=== PATIENT | female | born 1980 | race Caucasian/White ===

== ENCOUNTER 2020-05-11 16:30 | Emergency (ER) | payer SELFPAY ==
[2020-05-11 18:56] VITALS: BP 120/82; PULSE 75; RESP 18; TEMP 37; O2SAT 100; BMI 27.1
--- NOTE | 2020-05-11 19:50 | ED.GENADULT ---
HPI - General Adult General Chief complaint: General Medical Stated complaint: chest pressure Time Seen by Provider: 05/11/20 19:50 Source: patient Mode of arrival: ambulatory History of Present Illness HPI narrative: Pleasant 40-year-old female with history of asthma and fibromyalgia presents today with complaint of pressure-like discomfort in the chest for the past 3 days with mild cough and feels like she is slightly wheezing. States similar symptom in the past when she had pneumonia. There is no fever, sick contacts or travel. Onset (ago): day(s) (3 days ) Radiation: non-radiation Severity: mild Severity scale (1-10): 4 Quality: aching Relieving factors: none Exacerbating factors: none Treatments prior to arrival: none Related Data Allergies Allergy/AdvReac Type Severity Reaction Status Date / Time No Known Allergies Allergy Verified 05/11/20 19:51 Review of Systems Review of Systems: Constitutional: No Weight loss, No Fever, No Chills, No Night Sweats, No Fatigue, No Malaise ENT/Mouth: No Hearing loss, No Ear Pain, No Nasal Congestion, No Sinus Pain, No Hoarseness, No sore throat, No Rhinorrhea, No Swallowing Difficulty Eyes: No Eye Pain, No Swelling, No Redness, No Foreign Body, No Discharge, No Vision Changes Cardiovascular: + Chest Pain, No SOB, No Dyspnea on Exertion, No Orthopnea, No Edema, No Palpitations Respiratory: + Cough, No Sputum, No Wheezing, No Smoke Exposure, No Dyspnea Gastrointestinal: No Nausea, No Vomiting, No Diarrhea, No Constipation, No abdominal Pain, No Hematochezia, No Melena Genitourinary: no irregular bleeding, No Dysuria, No Urinary Frequency, No Hematuria, No Urinary Incontinence, No Urgency, No Flank Pain, No Urinary Flow Changes Musculoskeletal: No joint pain, No Myalgias, No Joint Swelling Skin: No Skin Lesions, No rash Neuro: No Weakness, No Numbness, No Paresthesias, No Loss of Consciousness, No Dizziness, No Headache Psych: No Anxiety/Panic, No Social Issues Heme/Lymph: No Bruising, No Bleeding,No Lymphadenopathy Endocrine: No Polyuria, No Polydipsia, No Temperature Intolerance Yes all other systems are reviewed and are negative [facility] Past Medical History Medical History Asthma Fibromyalgia Social History Social History Alcohol intake: never Smoking Status: Never smoker Use of substances other than those prescribed or required for medical reasons: No Advance Directives: No Advance Directives Information Provided: No Physical Exam Vital Signs: Vital Signs: Last Vital Signs Temp 98.6 F 05/11/20 18:56 Pulse 75 05/11/20 18:56 Resp 18 05/11/20 18:56 BP 120/82 05/11/20 18:56 Pulse Ox 100 05/11/20 18:56 Body Mass Index 27.1 Reviewed Const: General: cooperative and healthy appearing; No acute distress or intoxicated appearing Nutritional Appearance: average body habitus Orientation/consciousness: patient oriented x3 HENMT: Head: Yes normal to inspection Ears: hearing grossly normal bilaterally Eyes: General: appearance normal, both eyes and all related structures Visual Morley: normal visual morley by confrontation Neck: Neck: Yes normal visual inspection and No tender Thyroid: Thyroid normal Chest: Chest palpation & inspection: normal inspection of the chest Breast/axilla inspection: normal inspection of the breasts Resp: Effort & Inspection: normal respiratory effort Auscultation: clear to auscultation bilaterally Cardio: Jugular venous distension: no JVD Rhythm: regular rhythm Heart sounds: S1 normal heart sound present and S2 normal heart sound present GI: Inspection: Yes normal to inspection Percussion: Yes normal to percussion Auscultation: normal bowel sounds : General: Yes no CVA tenderness Back/Spine/Pelvis: Back: no CVA tenderness Skin: General skin exam: no rashes or lesions noted Neuro: General: patient oriented x3 Extrem: General: Yes normal to inspection Medical Decision Making Lab Data Result diagrams: 05/11/20 19:55 05/11/20 19:55 Labs: Lab Results 05/11/20 05/11/20 05/11/20 Range/Units 19:55 19:55 19:55 WBC 5.4 (4.8-10.8) X10*3/uL RBC 4.30 (4.20-5.50) X10*6/uL Hgb 12.9 (12.0-16.0) g/dl Hct 38.5 (37-47) % MCV 89.5 (80-98) fL MCH 30.0 (27.0-33.0) pg MCHC 33.5 (31.0-35.0) g/dl RDW 12.3 (11.0-16.0) % Plt Count 185 (160-400) X10*3/uL MPV 11.9 (9.4-12.3) fL Immature Gran % (Auto) 0.0 (0.0-0.4) % Neut % (Auto) 54.4 (45-73) % Lymph % (Auto) 36.2 (20-40) % [place] % (Auto) 7.6 (2-11) % Eos % (Auto) 1.1 (0-4) % Baso % (Auto) 0.7 (0-2) % Lymph # (Auto) 2.0 (1.2-4.9) X10*3/uL [place] # (Auto) 0.4 (0.1-1.2) X10*3/uL Eos # (Auto) 0.1 (0.0-0.4) X10*3/uL Baso # (Auto) 0.0 (0.0-0.2) X10*3/uL Abs Immat Gran (auto) 0.00 (0.00-0.03) X10*3/uL Absolute Neuts (auto) 3.0 (2.0-8.3) X10*3/uL Absolute Nucleated RBC 0.000 (0.0-0.012) X10*3/uL Nucleated RBC % (auto) 0.0 (0.0-0.2) /100WBC PT 11.5 (10.8-13.0) SEC INR 1.0 (0.9-1.1) APTT 46.2 H (24.1-38.0) SEC Sodium 138 (135-145) mmol/L Potassium 3.8 (3.3-5.1) mmol/l Chloride 105 (96-108) mmol/L Carbon Dioxide 25 (22-29) mmol/L Anion Gap 12 (12-20) BUN 11 (9-16) mg/dL Creatinine 0.74 (0.5-1.4) mg/dL Estim Creat Clear Calc 88.9 Estimated GFR > 60 Random Glucose 109 (60-115) mg/dL Calcium 8.7 (8.4-10.2) mg/dL Total Bilirubin 0.5 (0.0-1.0) mg/dL AST 32 H (5-31) U/L ALT 41 H (0-31) U/L Alkaline Phosphatase 59 (39-117) U/L Troponin I High Sens (<3.5-17.0) ng/L Total Protein 6.9 (6.5-8.0) g/dL Albumin 4.3 (3.5-5.0) g/dL 05/11/20 Range/Units 19:55 WBC (4.8-10.8) X10*3/uL RBC (4.20-5.50) X10*6/uL Hgb (12.0-16.0) g/dl Hct (37-47) % MCV (80-98) fL MCH (27.0-33.0) pg MCHC (31.0-35.0) g/dl RDW (11.0-16.0) % Plt Count (160-400) X10*3/uL MPV (9.4-12.3) fL Immature Gran % (Auto) (0.0-0.4) % Neut % (Auto) (45-73) % Lymph % (Auto) (20-40) % [place] % (Auto) (2-11) % Eos % (Auto) (0-4) % Baso % (Auto) (0-2) % Lymph # (Auto) (1.2-4.9) X10*3/uL [place] # (Auto) (0.1-1.2) X10*3/uL Eos # (Auto) (0.0-0.4) X10*3/uL Baso # (Auto) (0.0-0.2) X10*3/uL Abs Immat Gran (auto) (0.00-0.03) X10*3/uL Absolute Neuts (auto) (2.0-8.3) X10*3/uL Absolute Nucleated RBC (0.0-0.012) X10*3/uL Nucleated RBC % (auto) (0.0-0.2) /100WBC PT (10.8-13.0) SEC INR (0.9-1.1) APTT (24.1-38.0) SEC Sodium (135-145) mmol/L Potassium (3.3-5.1) mmol/l Chloride (96-108) mmol/L Carbon Dioxide (22-29) mmol/L Anion Gap (12-20) BUN (9-16) mg/dL Creatinine (0.5-1.4) mg/dL Estim Creat Clear Calc Estimated GFR Random Glucose (60-115) mg/dL Calcium (8.4-10.2) mg/dL Total Bilirubin (0.0-1.0) mg/dL AST (5-31) U/L ALT (0-31) U/L Alkaline Phosphatase (39-117) U/L Troponin I High Sens < 3.5 (<3.5-17.0) ng/L Total Protein (6.5-8.0) g/dL Albumin (3.5-5.0) g/dL Imaging Data Chest x-ray: Radiologist's impression: [address] [address] XRay Report Signed Patient: Laura TrippMR#: [id number] : 1980Acct:[id number] Age/Sex: 40 / FADM Date: 05/11/20 Loc: HO.ED Attending Dr: Ordering Physician: Alexsander Segura NP Date of Service: 05/11/20 Procedure(s): XR chest 1V Accession Number(s): [id number] cc: Alexsander Segura NP~ EXAMINATION: XR CHEST CLINICAL INFORMATION: Chest pain COMPARISON: None TECHNIQUE: Frontal portable view of the chest was obtained. 8:03 PM FINDINGS: No significant abnormality is noted involving the heart, lungs, mediastinum, bony thorax or soft tissues. XR/XR chest 1V IMPRESSION: Unremarkable examination. Dictated By:LAUREL CAI MD Signed By:<Electronically signed by LAUREL CAI MD in OV>05/11/202029 DD/ 50 TD/TT: Fructose Loader: ROSALIA ECG Data Interpretation: Normal sinus rhythm HR 78 ME interval within normal limits No acute ST segment changes No previous Scores Heart Score History: -0- slightly suspicious ECG: -0- normal Age: -0- < or = 45 Risk factory: -0- no risk factors known Troponin: -0- < or = normal limit Score: 0 Risk: 1.7% Additional Scores Perc: Score: Perc negative Discharge Plan Discharge Clinical Impression: Atypical chest pain Patient Disposition: Home, Self-Care Instructions: Chest Pain (ED) Additional Instructions: Your blood work along with your chest x-ray and her EKG were within normal limits Home care as instructed Rest, Drink plenty fluids Take medication prescribed Return if any concerns or worsening symptoms Thank you Referrals: Masha Bain MD [Primary Care Provider] - 1 week (Phone visit)
--- NOTE | 2020-05-11 19:51 | ECG_ITS ---
Test Reason : SOB Blood Pressure : / mmHG Vent. Rate : 078 BPM Atrial Rate : 078 BPM P-R Int : 164 ms QRS Dur : 074 ms QT Int : 380 ms P-R-T Axes : 067 028 036 degrees QTc Int : 433 ms Normal sinus rhythm Normal ECG No previous ECGs available Referred By: Alexsander Segura Electronically Signed By:STACEY VERMA MD
[2020-05-11 20:07] LABS: Basophils Percent Auto 0.7 % (0-2); Eosinophils Absolute Auto 0.1 X10*3/uL (0.0-0.4); Eosinophils Percent Auto 1.1 % (0-4); Hematocrit 38.5 % (37-47); Hemoglobin 12.9 g/dl (12.0-16.0); Lymphocytes Percent Auto 36.2 % (20-40); MANUAL DIFF FLAG NO; Mean Corpuscular HGB Conc 33.5 g/dl (31.0-35.0); Mean Corpuscular Volume 89.5 fL (80-98); Mean Platelet Volume 11.9 fL (9.4-12.3); Monocytes Absolute Auto 0.4 X10*3/uL (0.1-1.2); Monocytes Percent Auto 7.6 % (2-11); Neutrophils Percent Auto 54.4 % (45-73); Platelet Count 185 X10*3/uL (160-400); Red Cell Distribution Width 12.3 % (11.0-16.0); White Blood Count 5.4 X10*3/uL (4.8-10.8)
[2020-05-11 20:12] LABS: Prothrombin Time 11.5 SEC (10.8-13.0)
[2020-05-11 20:15] LABS: Partial Thromboplastin Time 46.2 SEC (24.1-38.0)
[2020-05-11 20:34] LABS: Alanine Aminotransferase 41 U/L (0-31); Albumin Level 4.3 g/dL (3.5-5.0); Alkaline Phosphatase 59 U/L (39-117); Anion Gap 12 (12-20); Aspartate Amino Transferase 32 U/L (5-31); Bilirubin Total 0.5 mg/dL (0.0-1.0); Blood Urea Nitrogen 11 mg/dL (9-16); Calcium 8.7 mg/dL (8.4-10.2); Carbon Dioxide 25 mmol/L (22-29); Chloride 105 mmol/L (96-108); Creatinine Clr Calc Pharmacy 88.9; Estimated Glomerular Filt Rate > 60; Glucose Random 109 mg/dL (60-115); Potassium 3.8 mmol/l (3.3-5.1); Sodium 138 mmol/L (135-145); Total Protein 6.9 g/dL (6.5-8.0)
[2020-05-11 20:37] LABS: Troponin-I High Sensitivity < 3.5 ng/L (<3.5-17.0)
[2020-05-11 20:55] LABS: Influenza A PCR NEGATIVE (Negative); Influenza B PCR NEGATIVE (Negative); Resp Syncy Virus RNA Qual PCR NEGATIVE (Negative); SARS COV2 PCR INHOUSE NEGATIVE (Negative)
--- NOTE | 2020-05-11 21:57 | PC.NURSE ---
COVID TEST NEGATIVE. VOICE MAIL LEFT FOR PATIENT TO CALL EMERGENCY DEPT. #[phone].
== END 2020-05-11 21:14 | disposition home or self-care (01) ==
PROVIDERS: Nurse Practitioner Primary Care; Emergency Provider Emergency Medicine; PCP Internal Medicine
DX: R07.89 Other chest pain (principal); Z20.828 Contact with and (suspected) exposure to other viral communicable diseases; J45.909 Unspecified asthma, uncomplicated
CPT/HCPCS: 0241U; 36415; 71045; 80053; 84484; 85025; 85610; 85730; 93005; 99284

== ENCOUNTER 2020-06-13 19:04 | Emergency (ER) | payer MEDICAID, SELFPAY ==
[2020-06-13 19:39] VITALS: BP 123/90; PULSE 97; RESP 16; TEMP 36.7; O2SAT 100; BMI 27.3
[2020-06-13 20:23] LABS: COVID-19 Test Negative (Negative); IDNOW Serial# 9DD0AD1C
[2020-06-13 20:55] VITALS: BP 121/80; PULSE 79; RESP 16; TEMP 36.9; O2SAT 100
--- NOTE | 2020-06-13 20:55 | ED.SOB ---
HPI - SOB/Dyspnea General Chief Complaint: Dyspnea Stated Complaint: Covid symptoms Source: patient Mode of arrival: ambulatory Limitations: no limitations History of Present Illness HPI Narrative: 40-year-old female with no significant past medical history presents with chest pressure and upper respiratory symptoms. States that she had a fever several days ago and has concerns regarding COVID-19. She also complains of musculoskeletal pain to the right shoulder and scapula. She does have a history of asthma, states that she has been using her inhaler on a regular basis. She does not report palpitations, dizziness, weakness, abdominal pain, abdominal distention, dysuria, hematuria, and edema. MD elicited complaint: shortness of breath Pertinent past history: asthma Onset (ago): week(s) (1) Timing: intermittent Severity: mild Exacerbating factors: movement Known history of: asthma Associated symptoms: fever and chest congestion Treatment prior to arrival: none Related Data Previous Rx's Medication Instructions Recorded cyclobenzaprine 10 mg PO TID PRN #14 tab 06/13/20 Allergies Allergy/AdvReac Type Severity Reaction Status Date / Time No Known Allergies Allergy Unverified 02/01/20 17:39 seasonal allergies Allergy Unknown Uncoded 04/05/18 00:00 Review of Systems Review of Systems: Constitutional: positive Fever, positive Chills, positive fatigue, positive Malaise ENT/Mouth: No sore throat, no runny nose Eyes: No Discharge Cardiovascular: No Chest Pain, No SOB Respiratory: No Cough, No Sputum, No Wheezing, No Smoke Exposure, No Dyspnea Gastrointestinal: No Nausea, No Vomiting, No Diarrhea Genitourinary: no irregular bleeding, No Dysuria, No Urinary Frequency, No Hematuria, No Urinary Incontinence, No Urgency, No Flank Pain, Musculoskeletal: positive Myalgia, positive right shoulder and scapula pain Skin: No rash Neuro: No Headache Yes all other systems are reviewed and are negative [facility] Past Medical History Attestation statement: The following information was validated with the patient. Source: old records reviewed Social History Social History Smoking Status: Never smoker Use of substances other than those prescribed or required for medical reasons: No Advance Directives: No Advance Directives Information Provided: No Physical Exam Vital Signs: Vital Signs: Last Vital Signs Temp 98.1 F 01/28/21 22:00 Pulse 74 06/13/20 22:00 Resp 91 H 06/13/20 22:00 BP 110/67 06/13/20 22:00 Pulse Ox 99 06/13/20 22:00 Body Mass Index 27.3 Appearance: Alert. Oriented X3. No acute distress. Eyes: Pupils equal, round and reactive to light. ENT: Pharynx normal. Cranials 2 through 12 intact to Neck: Normal inspection. Neck supple. CVS: Normal heart rate and rhythm. Pulses normal. Respiratory: No respiratory distress. Lung sounds clear to auscultation all lobes Abdomen: Soft and nontender. Negative Haynes, McBurney, psoas. Skin: Skin warm and dry. Normal skin color. Normal skin turgor. Extremities: No lower extremity edema. Neuro: No motor deficit. No sensory deficit. 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 Plan of care is for COVID testing and chest x-ray. She is complaining of shoulder and scapular pain however her physical abdominal exam is negative for tenderness. Most likely to be repetitive motion and constant lifting, which she agrees with this. COVID is negative, chest x-ray is unremarkable. Plan of care is to discharge home with muscle relaxer. Patient verbalized understanding of and agrees to plan of care to discharge home. motor vehicle parts interpreter utilized for all correspondence. Google translate utilized for discharge instructions. MDM - SOB/Dyspnea MDM Narrative Medical decision making narrative: COVID-19, musculoskeletal pain Differential Diagnosis Differential diagnosis: Likely pneumonia and asthma with exacerbation Medical Records Attestation: I reviewed the patient's medical records. Lab Data Attestation: I reviewed the patient's lab results. Labs: Lab Results 06/13/20 Range/Units 19:58 COVID-19 (KATLIN) Negative (Negative) COVID-19 Clin Com See Note Imaging Data Chest x-ray: Attestation: I personally reviewed and interpreted this imaging study as follows: Radiologist's impression: EXAMINATION: XR CHEST CLINICAL INFORMATION: Shortness of breath COMPARISON: 11/07/2017 TECHNIQUE: 2 views of the chest were obtained. FINDINGS: No significant abnormality is noted involving the heart, lungs, mediastinum, bony thorax or soft tissues. XR/XR chest 2V IMPRESSION: Unremarkable examination. Discharge Plan Discharge Clinical Impression: Muscular aches URI (upper respiratory infection) Qualifiers: URI type: unspecified viral URI Qualified Code(s): J06.9 - Acute upper respiratory infection, unspecified Patient Disposition: Home, Self-Care Instructions: Muscle Strain (ED), Upper Respiratory Infection (ED), Viral Syndrome (ED) Additional Instructions: Se le evaluaron los s?ntomas de las v?as respiratorias superiores de acuerdo con COVID-19. Mcpherson prueba COVID fue negativa. La radiograf?a de t?rax fue negativa para los hallazgos agudos que requieren olivia intervenci?n emergente. [place] podr?a ser olivia progresi?n temprana de la infecci?n viral de las v?as respiratorias superiores. Para el dolor esquel?musa muscular le recet? con olivia receta para ciclobenzaprino. Jody medicamento es un relajante muscular y puede retrasar el tiempo de reacci?n, causar somnolencia, y aumentar el riesgo de ca?morales. No conduzca ni opere maquinaria mientras est? tomando jody medicamento Vidal por elegir jody departamento de emergencias para la evaluaci?n. Por favor, jim un seguimiento con el m?dico de atenci?n primaria seg?n sea necesario. Regrese al servicio de urgencias para cualquier s?ntoma nuevo, preocupante o que empeore. You were evaluated for upper respiratory symptoms consistent with COVID-19. Your COVID test was negative. Your chest x-ray was negative for acute findings requiring emergent intervention. This could be an early progression of upper respiratory viral infection. For muscular skeletal pain prescribed you with a prescription for cyclobenzaprine. This medication is a muscle relaxer and it may delay reaction time, cause drowsiness, and increase risk for falls. Do not drive or operate machinery while taking this medication Thank you for choosing this emergency department for evaluation. Please follow-up with primary care physician as needed. Return to the emergency department for any new, concerning, or worsening symptoms. Prescriptions: New cyclobenzaprine 10 mg tablet 10 mg PO TID PRN (Reason: muscle spasm) Qty: 14 RF: 0 Stand Alone Forms: Work/School Release Discharge Date/Time: 06/13/20 22:12
[2020-06-13 22:00] VITALS: BP 110/67; PULSE 74; RESP 91; TEMP 36.7; O2SAT 99
== END 2020-06-13 22:12 | disposition home or self-care (01) ==
PROVIDERS: Emergency Provider Emergency Medicine
DX: J06.9 Acute upper respiratory infection, unspecified (principal); Z20.822 Contact with and (suspected) exposure to COVID-19; M79.10 Myalgia, unspecified site
CPT/HCPCS: 36415; 71046; 87635; 99283; 99284

== ENCOUNTER → 2020-10-29 08:03 | Outpatient (BNVA) | payer SELFPAY | PROVIDERS: Visit Provider Physician Assistant Medical | DX: Z02.1 Encounter for pre-employment examination (principal) ==

== ENCOUNTER 2020-12-27 11:10 | Emergency (ER) | payer OTHER, SELFPAY ==
--- NOTE | 2020-12-27 | ECG_ITS ---
Test Reason : CHEST PAIN Blood Pressure : / mmHG Vent. Rate : 100 BPM Atrial Rate : 100 BPM P-R Int : 154 ms QRS Dur : 068 ms QT Int : 344 ms P-R-T Axes : 074 051 051 degrees QTc Int : 443 ms Normal sinus rhythm Normal ECG When compared with ECG of 07-NOV-2017 17:48, No significant change was found Referred By: Generic ED Physician Electronically Signed By:JONATAN MUNIZ
--- NOTE | ~2020-12-27 | XR_ITS ---
EXAMINATION: XR CHEST CLINICAL INFORMATION: Dizziness and chest pain. COMPARISON: Chest 11/07/2017 TECHNIQUE: 2 views of the chest were obtained. FINDINGS: No significant abnormality is noted involving the heart, lungs, mediastinum, bony thorax or soft tissues. XR/XR chest 2V IMPRESSION: Unremarkable chest examination.
[2020-12-27 11:19] VITALS: BP 121/80; PULSE 95; RESP 16; TEMP 36.6; O2SAT 100; BMI 25.9
[2020-12-27 11:29] VITALS: BP 131/71; PULSE 93; RESP 18; TEMP 37; O2SAT 100
--- NOTE | 2020-12-27 11:38 | ED_ITS ---
HPI - Dizziness General Chief Complaint: Dizziness Stated Complaint: dizzy Time Seen by Provider: 12/27/20 11:29 Source: patient and sign language interpreter Mode of arrival: ambulatory Limitations: language barrier History of Present Illness HPI Narrative: 40-year-old female with past medical history of costochondritis, fibromyalgia here with complaints of central chest discomfort x 3 days which is worsened with deep breathing and patient feels like she cant take a deep breath. No cough, fevers or chills or shortness of breath. History of costochondritis and feels similar. Started Flexeril and meloxicam 3 days ago and her pain is less severe today however patient is also having some palpitations and dizziness which is not a typical symptom of her costochondritis. She tells me that she feels palpitations when she has both at rest and with exertion. This has been going on for 3 days and dizziness is described as lightheadedness which is worsened with standing and movement. No headache, weakness, paresthesias. Related Data Previous Rx's Medication Instructions Recorded cyclobenzaprine 10 mg tablet 10 mg PO TID PRN #14 tab 06/13/20 Allergies Allergy/AdvReac Type Severity Reaction Status Date / Time No Known Allergies Allergy Unverified 02/01/20 17:39 seasonal allergies Allergy Unknown Uncoded 04/05/18 00:00 Review of Systems Review of Systems: Yes all other systems are reviewed and are negative Constitutional: Constitutional: Reports no additional constitutional compl aints, Denies body ache(s), Denies chills, Denies fever(s), Denies headache(s) and Denies weakness Eyes: Eyes: Reports no additional eye complaints and Denies change in vision ENT: Reports system reviewed and no additional complaints, except as documented, Reports dizziness, Denies headache(s), Denies nasal congestion, Denies nasal discharge and Denies neck pain Cardiovascular: Cardiovascular: Reports no additional cardiovascular complaints, Reports chest pain, Reports rapid heart rate, Denies leg edema and Denies dyspnea Respiratory: Respiratory: Reports no additional respiratory complaints, Denies cough and Denies dyspnea Gastrointestinal: Gastrointestinal: Reports no additional gastrointestinal complaints, Denies abdominal pain, Denies diarrhea, Denies nausea and Denies vomiting Genitourinary: Genitourinary: Reports no additional female genitourinary complaints and Denies urinary incontinence Musculoskeletal: Musculoskeletal: Reports no additional musculoskeletal complaints, Denies back pain, Denies arthralgias, Denies joint swelling, Denies neck pain, Denies numbness and Denies tingling Integumentary/Breasts: Skin/Breast: Reports system reviewed and no additional complaints, except as docu and Denies rash Neurologic: Reports system reviewed and no additional complaints, except as documented, Denies Abnormal speech present, Reports dizziness, Denies headache(s), Denies numbness, Denies tingling and Denies weakness PMFSH Past Medical History Attestation statement: The following information was validated with the patient. Source: old records reviewed and nursing notes reviewed Social History Social History Advance Directives: No Advance Directives Information Provided: No Patient : No Physical Exam Vital Signs: Vital Signs: Last Vital Signs Temp 98.2 F 12/27/20 12:09 Pulse 99 12/27/20 12:09 Resp 20 12/27/20 12:09 BP 120/81 12/27/20 12:09 Pulse Ox 100 12/27/20 12:09 Body Mass Index 25.9 Const: General: cooperative, healthy appearing, comfortable and no acute distress Orientation/consciousness: patient oriented x3 Limitations: no limitations HENMT: Head: Yes normal to inspection Ears: hearing grossly normal bilaterally General nose exam: Normal external nose present Face and sinus: Yes normal facial exam Mouth: Normal oral and palatal mucosa present Throat: Yes posterior oropharynx normal Eyes: General: appearance normal, both eyes and all related structures Pupils: Equal, round and reactive pupils present Neck: Neck: Yes normal visual inspection Chest: Chest palpation & inspection: normal inspection of the chest Resp: Effort & Inspection: normal respiratory effort Auscultation: clear to auscultation bilaterally Cardio: Rate: regular rate Rhythm: regular rhythm Peripheral pulses: Peripheral pulses 2+ throughout GI: Inspection: Yes normal to inspection Palpation (GI): Soft to palpation and nontender Auscultation: normal bowel sounds Back/Spine/Pelvis: Thoracic/Lumbar Spine: thoracic and lumbar spine normal to inspection Skin: General skin exam: no rashes or lesions noted Neuro: General: patient oriented x3, no focal motor deficits and normal sensation to monofilament Cranial nerves: Yes CN's II-XII intact bilaterally, Yes Equal, round and reactive pupils present, Yes Bilaterally intact EOM present, Yes Nystagmus not present, Yes Normal facial strength present and Yes Midline tongue present Cognition (Neuro): normal cognition Speech: No Abnormal speech present Gait exam (Neuro): Normal gait present Motor exam (neuro): 5/5 motor strength present throughout Sensory Exam: Normal double simultaneous stimulation for sensation Deep tendon reflexes (DTR's): Right patellar reflex intensity grade: 2+ and Left patellar reflex intensity grade: 2+ Coordination: [id number] test normal, [id number] test normal and tandem gait normal Extrem: General: Yes normal to inspection, Yes no pedal edema and Yes no calf tenderness Course Course Course Narrative: 40-year-old female here with complaints of chest discomfort wh ich is worsened with deep breathing and movement for the last few days which feels similar to her previous episodes of costochondritis. Using anti- inflammatory and Flexeril at home and feels that the pain is improved however, patient is also complaining of some dizziness with position changes and p alpitations which she feels like is a new symptom. Vital signs are stable. Neurological exam is normal. Will check labs, EKG, orthostatic vital signs, chest x-ray, UA.. 1545-orthostatics are positive with a 20 point increase in heart rate. Labs show no acute finding. EKG and troponin are unremarkable. Patient is feeling improved after fluid bolus. Likely costochondritis. May be underlying mild dehydration.. Reviewed worrisome signs and symptoms when to return to the emergency departmen t. Comfortable discharge home. MDM - Dizziness MDM Narrative Medical decision making narrative: Less likely ACS with symptoms greater than 3 days with negative troponin EKG Less likely PE with negative D-dimer Medical Records Attestation: I reviewed the patient's medical records. Lab Data Attestation: I reviewed the patient's lab results. Result diagrams: 12/27/20 11:46 12/27/20 11:46 Labs: Lab Results 12/27/20 12/27/20 12/27/20 Range/Units 11:46 11:46 11:46 WBC 5.4 (4.8-10.8) X10*3/uL RBC 4.28 (4.20-5.50) X10*6/uL Hgb 12.6 (12.0-16.0) g/dl Hct 38.7 (37-47) % MCV 90.4 (80-98) fL MCH 29.4 (27.0-33.0) pg MCHC 32.6 (31.0-35.0) g/dl RDW 13.1 (11.0-16.0) % Plt Count 208 (160-400) X10*3/uL MPV 11.3 (9.4-12.3) fL Immature Gran % (Auto) 0.2 (0.0-0.4) % Neut % (Auto) 66.8 (45-73) % Lymph % (Auto) 24.1 (20-40) % [place] % (Auto) 6.3 (2-11) % Eos % (Auto) 1.7 (0-4) % Baso % (Auto) 0.9 (0-2) % Lymph # (Auto) 1.3 (1.2-4.9) X10*3/uL [place] # (Auto) 0.3 (0.1-1.2) X10*3/uL Eos # (Auto) 0.1 (0.0-0.4) X10*3/uL Baso # (Auto) 0.1 (0.0-0.2) X10*3/uL Abs Immat Gran (auto) 0.01 (0.00-0.03) X10*3/uL Absolute Neuts (auto) 3.6 (2.0-8.3) X10*3/uL Absolute Nucleated RBC 0.000 (0.0-0.012) X10*3/uL Nucleated RBC % (auto) 0.0 (0.0-0.2) /100WBC PT 10.9 (9.9-13.0) SEC INR 1.0 (0.9-1.1) D-Dimer < 200 NG/ML Sodium 140 (135-145) mmol/L Potassium 4.1 (3.3-5.1) mmol/L Chloride 105 (96-108) mmol/L Carbon Dioxide 27 (22-29) mmol/L Anion Gap 12 (12-20) BUN 16 (9-16) mg/dL Creatinine 0.76 (0.5-1.4) mg/dL Estim Creat Clear Calc 84.9 Estimated GFR > 60 Random Glucose 101 (60-115) mg/dL Calcium 9.2 (8.4-10.2) mg/dL Magnesium 1.9 (1.6-2.6) mg/dL Total Bilirubin 0.7 (0.0-1.0) mg/dL Direct Bilirubin 0.3 (0.0-0.5) mg/dL AST 16 (5-31) U/L ALT 13 (0-31) U/L Alkaline Phosphatase 60 (39-117) U/L Troponin I High Sens (<3.5-17.0) ng/L Total Protein 6.9 (6.5-8.0) g/dL Albumin 4.1 (3.5-5.0) g/dL TSH 1.04 (0.32-4.0) uIU/mL Urine Color Urine Appearance Urine pH (5.0-8.0) Ur Specific Gary (1.005-1.025) Urine Protein (NEG-TRACE) MG/DL Urine Glucose (UA) (NEG) MG/DL Urine Ketones (NEG) MG/DL Urine Blood (NEG) Urine Nitrite (NEG) Ur Leukocyte Esterase (NEG) Urine RBC (0) /HPF Urine WBC (0-4) /HPF Ur Squamous Epith Cells /LPF Urine Bacteria /LPF Urine Test (NEGATIVE) 12/27/20 12/27/20 12/27/20 Range/Units 11:46 12:04 12:04 WBC (4.8-10.8) X10*3/uL RBC (4.20-5.50) X10*6/uL Hgb (12.0-16.0) g/dl Hct (37-47) % MCV (80-98) fL MCH (27.0-33.0) pg MCHC (31.0-35.0) g/dl RDW (11.0-16.0) % Plt Count (160-400) X10*3/uL MPV (9.4-12.3) fL Immature Gran % (Auto) (0.0-0.4) % Neut % (Auto) (45-73) % Lymph % (Auto) (20-40) % [place] % (Auto) (2-11) % Eos % (Auto) (0-4) % Baso % (Auto) (0-2) % Lymph # (Auto) (1.2-4.9) X10*3/uL [place] # (Auto) (0.1-1.2) X10*3/uL Eos # (Auto) (0.0-0.4) X10*3/uL Baso # (Auto) (0.0-0.2) X10*3/uL Abs Immat Gran (auto) (0.00-0.03) X10*3/uL Absolute Neuts (auto) (2.0-8.3) X10*3/uL Absolute Nucleated RBC (0.0-0.012) X10*3/uL Nucleated RBC % (auto) (0.0-0.2) /100WBC PT (9.9-13.0) SEC INR (0.9-1.1) D-Dimer NG/ML Sodium (135-145) mmol/L Potassium (3.3-5.1) mmol/L Chloride (96-108) mmol/L Carbon Dioxide (22-29) mmol/L Anion Gap (12-20) BUN (9-16) mg/dL Creatinine (0.5-1.4) mg/dL Estim Creat Clear Calc Estimated GFR Random Glucose (60-115) mg/dL Calcium (8.4-10.2) mg/dL Magnesium (1.6-2.6) mg/dL Total Bilirubin (0.0-1.0) mg/dL Direct Bilirubin (0.0-0.5) mg/dL AST (5-31) U/L ALT (0-31) U/L Alkaline Phosphatase (39-117) U/L Troponin I High Sens < 3.5 (<3.5-17.0) ng/L Total Protein (6.5-8.0) g/dL Albumin (3.5-5.0) g/dL TSH (0.32-4.0) uIU/mL Urine Color YELLOW Urine Appearance HAZY Urine pH 6.5 (5.0-8.0) Ur Specific Gary <= 1.005 (1.005-1.025) Urine Protein NEG (NEG-TRACE) MG/DL Urine Glucose (UA) NEG (NEG) MG/DL Urine Ketones NEG (NEG) MG/DL Urine Blood 3+ H (NEG) Urine Nitrite NEG (NEG) Ur Leukocyte Esterase NEG (NEG) Urine RBC 1-4 (0) /HPF Urine WBC 0 (0-4) /HPF Ur Squamous Epith Cells 1+ /LPF Urine Bacteria NONE /LPF Urine Test NEGATIVE (NEGATIVE) Imaging Data Chest x-ray: Attestation: I personally reviewed and interpreted this imaging study as follows: Radiologist's impression: [address] [address] XRay Report Signed Patient: Laura Montana MR#: [id number] : 1980 Acct:[id number] Age/Sex: 40 / F ADM Date: 12/27/20 Loc: [facility].ED Attending Dr: Ordering Physician: MAY BURROWS NP Date of Service: 12/27/20 Procedure(s): XR chest 2V Accession Number(s): [id number] cc: MAY BURROWS NP~ EXAMINATION: XR CHEST CLINICAL INFORMATION: Dizziness and chest pain. COMPARISON: Chest 11/07/2017 TECHNIQUE: 2 views of the chest were obtained. FINDINGS: No significant abnormality is noted involving the heart, lungs, mediastinum, bony thorax or soft tissues. XR/XR chest 2V IMPRESSION: Unremarkable chest examination. ECG Data Attestation: I personally reviewed and interpreted this ECG as follows: ECG interpretation date: 12/27/20 ECG interpretation time: 11:37 Interpretation: Normal sinus rhythm with rate of 100, normal TN, normal QRS, normal QT Discharge Plan Discharge Clinical Impression: Acute costochondritis, Orthostatic hypotension Patient Disposition: Home, Self-Care Instructions: Costochondritis (ED), Lightheadedness (ED) Additional Instructions: Your lab work, EKG and chest x-ray all looked normal. Your heart rate and blood pressure changed slightly with position changes which could indicate some mild dehydration. This is likely why you are having palpitations and feeling lightheaded. Continue your medications at home Increase fluids, rest Change positions slowly Prescriptions: No Action cyclobenzaprine 10 mg tablet 10 mg PO TID PRN (Reason: muscle spasm) Qty: 14 RF: 0 Referrals: Masha Bain MD [Primary Care Provider] - 2 days Interventions: ED Discharge Assessment Last Done: 12/27/20 14:40 Discharge Date/Time: 12/27/20 14:48 Print Language: Frisian
[2020-12-27 11:51] LABS: MANUAL DIFF FLAG NO
[2020-12-27 11:52] LABS: Basophils Absolute Auto 0.1 X10*3/uL (0.0-0.2); Basophils Percent Auto 0.9 % (0-2); Eosinophils Absolute Auto 0.1 X10*3/uL (0.0-0.4); Eosinophils Percent Auto 1.7 % (0-4); Hematocrit 38.7 % (37-47); Hemoglobin 12.6 g/dl (12.0-16.0); Imm Gran Abs Auto 0.01 X10*3/uL (0.00-0.03); Imm Gran Pct Auto 0.2 % (0.0-0.4); Lymphocytes Absolute Auto 1.3 X10*3/uL (1.2-4.9); Lymphocytes Percent Auto 24.1 % (20-40); Mean Corpuscular HGB Conc 32.6 g/dl (31.0-35.0); Mean Corpuscular Hemoglobin 29.4 pg (27.0-33.0); Mean Corpuscular Volume 90.4 fL (80-98); Mean Platelet Volume 11.3 fL (9.4-12.3); Monocytes Absolute Auto 0.3 X10*3/uL (0.1-1.2); Monocytes Percent Auto 6.3 % (2-11); Neutrophils Absolute Auto 3.6 X10*3/uL (2.0-8.3); Neutrophils Percent Auto 66.8 % (45-73); Platelet Count 208 X10*3/uL (160-400); Red Blood Count 4.28 X10*6/uL (4.20-5.50); Red Cell Distribution Width 13.1 % (11.0-16.0); White Blood Count 5.4 X10*3/uL (4.8-10.8)
[2020-12-27 11:58] LABS: Prothrombin Time 10.9 SEC (9.9-13.0)
[2020-12-27 12:07] VITALS: BP 127/83; BP 138/88; PULSE 86; PULSE 91
[2020-12-27 12:08] VITALS: BP 118/82; PULSE 102
[2020-12-27 12:09] VITALS: BP 120/81; PULSE 99; RESP 20; TEMP 36.8; O2SAT 100
[2020-12-27 12:11] LABS: Glucose Urine UA NEG (NEG); Leukocyte Esterase Urine NEG (NEG); Nitrite Urine NEG (NEG); PH 6.5 (5.0-8.0); Specific Gravity - Urine <= 1.005 (1.005-1.025); UACC Culture Trigger NO; Urine Blood 3+ (NEG); Urine Ketones NEG (NEG); Urine Protein NEG (NEG-TRACE)
[2020-12-27 12:14] LABS: D Dimer < 200 NG/ML
[2020-12-27 12:15] LABS: Color Urine YELLOW
[2020-12-27 12:15] LABS: Alanine Aminotransferase 13 U/L (0-31); Albumin Level 4.1 g/dL (3.5-5.0); Alkaline Phosphatase 60 U/L (39-117); Anion Gap 12 (12-20); Aspartate Amino Transferase 16 U/L (5-31); Bilirubin Direct 0.3 mg/dL (0.0-0.5); Bilirubin Total 0.7 mg/dL (0.0-1.0); Blood Urea Nitrogen 16 mg/dL (9-16); Calcium 9.2 mg/dL (8.4-10.2); Carbon Dioxide 27 mmol/L (22-29); Chloride 105 mmol/L (96-108); Creatinine Clr Calc Pharmacy 84.9; Estimated Glomerular Filt Rate > 60; Glucose Random 101 mg/dL (60-115); Magnesium 1.9 mg/dL (1.6-2.6); Potassium 4.1 mmol/L (3.3-5.1); Sodium 140 mmol/L (135-145); Total Protein 6.9 g/dL (6.5-8.0)
[2020-12-27 12:16] LABS: Appearance Urine HAZY
[2020-12-27 12:17] LABS: UPreg QC Valid YES; Urine Pregnancy NEGATIVE (NEGATIVE)
[2020-12-27 12:19] LABS: Squamous Epithelial Cell Urine 1+ /LPF; WBC Urine 0 /HPF (0-4)
[2020-12-27 12:19] LABS: Troponin-I High Sensitivity < 3.5 ng/L (<3.5-17.0)
[2020-12-27] MEDS: 0.9 % Sodium Chloride 1,000 ML 999 ML IV (12:28)
[2020-12-27 12:36] LABS: Thyroid Stimulating Hormone 1.04 uIU/mL (0.32-4.0)
== END 2020-12-27 14:48 | disposition home or self-care (01) ==
PROVIDERS: Nurse Practitioner Family; Emergency Provider Emergency Medicine; PCP Internal Medicine
DX: R07.9 Chest pain, unspecified (principal); I95.1 Orthostatic hypotension; M94.0 Chondrocostal junction syndrome [Tietze]; R42 Dizziness and giddiness; M79.7 Fibromyalgia; Z79.899 Other long term (current) drug therapy
CPT/HCPCS: 36415; 71046; 80048; 80076; 81001; 81025; 83735; 84443; 84484; 85025; 85379; 85610; 93005; 96360; 99284

== ENCOUNTER 2021-07-28 09:56 | Outpatient (REF) | payer OTHER, SELFPAY ==
--- NOTE | ~2021-07-28 | XR_ITS ---
EXAMINATION: XR CHEST CLINICAL INFORMATION: Other specified symptoms and signs involving the respiratory tract COMPARISON: Previous chest x-ray most recent December 2020 TECHNIQUE: 2 views of the chest were obtained. FINDINGS: No significant abnormality is noted involving the heart, lungs, mediastinum, bony thorax or soft tissues. XR/XR chest 2V IMPRESSION: Unremarkable examination.
== END 2021-07-28 09:57 | disposition home or self-care (01) ==
LOC: HO.XRAY 09:56
PROVIDERS: PCP Internal Medicine; Visit Provider Internal Medicine
DX: R09.89 Other specified symptoms and signs involving the circulatory and respiratory systems (principal)
CPT/HCPCS: 71046

== ENCOUNTER → 2022-07-07 14:29 | Outpatient (REF) | payer OTHER, SELFPAY ==
--- NOTE | 2022-07-07 14:32 | HM_ITS ---
* Total monitoring time approximately 2 days. * Underlying rhythm is sinus. Average ventricular rate 94/Min. Range 64 to 147/Min. * About 25% the time, rate > 100/Min; sinus tachycardia. * Very rare PACs and PVCs. * No significant pauses or AV blocks. * No patient markers or diary events. MTDD
== END ==
LOC: HO.CARD 14:29
PROVIDERS: PCP Internal Medicine; Visit Provider Internal Medicine
DX: R00.2 Palpitations (principal)
CPT/HCPCS: 93225

== ENCOUNTER → 2022-07-24 14:58 | Outpatient (BNVA) | payer OTHER, SELFPAY | PROVIDERS: PCP Internal Medicine; Visit Provider Hospitalist | DX: R07.1 Chest pain on breathing (principal); R06.09 Other forms of dyspnea; R09.89 Other specified symptoms and signs involving the circulatory and respiratory systems | CPT/HCPCS: 99202 ==

== ENCOUNTER 2022-08-06 15:47 | Outpatient (REF) | payer OTHER, SELFPAY ==
--- NOTE | 2022-08-06 17:11 | PFT_ITS ---
INDICATION: Shortness of breath. SPIROMETRY: FEV1 to FVC 82% with an FEV1 2.76 L, which is 101% predicted and FVC of 2.36 L, which is 101% predicted. No significant response to bronchodilator is noted. Maximum voluntary ventilation 111% predicted. LUNGS VOLUMES: Total lung capacity 107% predicted. DIFFUSION CAPACITY: DLCO 108% predicted. COMPARISON: None. INTERPRETATION: No obstructive nor restrictive ventilatory defects identified. No significant response to bronchodilators noted. Mild degree of small airway disease, which could be secondary to underlying asthma. Lung volumes are within normal limits. Diffusion capacity also within normal limits. If asthma is in the differential, a methacholine challenge may be warranted in order to assess for hyperreactive airways. Otherwise, clinical correlation warranted. MD CHRISTY Jones/MODL / [id number]
== END 2022-08-06 15:48 | disposition home or self-care (01) ==
LOC: HO.RESP 15:47
PROVIDERS: PCP Internal Medicine; Visit Provider Hospitalist
DX: R06.09 Other forms of dyspnea (principal)
CPT/HCPCS: 94060; 94727; 94729

== ENCOUNTER 2022-08-14 13:10 | Outpatient (REF) | payer OTHER, SELFPAY ==
--- NOTE | ~2022-08-14 | CT_ITS ---
EXAMINATION: CT CHEST WITHOUT CONTRAST CLINICAL INFORMATION: Other specified signs and symptoms involving the respiratory tract COMPARISON: Previous chest x-ray most recent July 2021 TECHNIQUE: Multidetector volumetric CT imaging of the chest was done. Axial MIP volume rendering provided. Sagittal and coronal reformatted images were obtained. This CT examination was performed using dose optimization techniques as appropriate, variously including the following: *Automated exposure control *Adjustment of mA and/or kV according to patient size (this includes techniques or standardized protocols for targeted exams where dose is matched to indication/reason for exam; i.e. extremities or head) *Use of iterative reconstruction technique DLP: 151 mGy-cm FINDINGS: [employer] DEVELOPER: Unremarkable LUNGS: There is mild right apical pleural and parenchymal scarring. The lungs are otherwise clear. No emphysema interstitial lung disease or bronchiectasis. No endobronchial or endotracheal lesion. MEDIASTINUM: The mediastinum is normal. CORONARY ARTERY CALCIFICATION: None visualized on this study. PLEURA: There is no pleural effusion. No pleural mass or thickening. AXILLA: No lymphadenopathy. UPPER ABDOMEN: Unremarkable. The gallbladder has been removed. OSSEOUS STRUCTURES: Unremarkable. CT/CT chest wo IV con IMPRESSION: Mild right apical pleural parenchymal scarring. Otherwise unremarkable exam. Fleischner guidelines were followed.
== END 2022-08-14 13:11 | disposition home or self-care (01) ==
LOC: HO.CT 13:10
PROVIDERS: PCP Internal Medicine; Visit Provider Hospitalist
DX: R07.9 Chest pain, unspecified (principal); R09.89 Other specified symptoms and signs involving the circulatory and respiratory systems
CPT/HCPCS: 71250

== ENCOUNTER → 2022-09-21 15:19 | Outpatient (BNVA) | payer OTHER, SELFPAY | PROVIDERS: PCP Internal Medicine; Visit Provider Hospitalist | DX: R09.89 Other specified symptoms and signs involving the circulatory and respiratory systems (principal); R06.09 Other forms of dyspnea | CPT/HCPCS: 99212 ==

== ENCOUNTER 2023-01-13 10:07 | Outpatient (AMB) | payer OTHER, SELFPAY ==
--- NOTE | 2023-01-13 10:14 | MHC.OFFVIS ---
Intake Vital Signs 01/13/23 10:23 Height 5 ft 2 in Weight 151 lb 3.794 oz BMI 27.7 BP 104/68 Blood Pressure Location Lt brachial Position Sitting Pulse 68 Pulse Source Pulse Oximeter Temp 97.8 F Temp Source Skin Pulse Oximetry (%) 98 Oxygen Delivery Method Room Air Intake Visit Reasons: Joint Pain Intake Note: New patient here for joint pain. c/o right wrist pain, finger pain in both hands that starts in the morning, maximilian feet pain and swelling that begins in the evening. EMG done over 9 years ago, negative for CTS. Technology Manager Required: Yes Technology Manager Language: Merchandise Clerk Name: Conchis [id number] Accompanied by: Self / Same As Patient Allergies seasonal allergies Allergy (Mild, Uncoded 01/13/23 10:15) Itchy Eyes Medication List - Last Reconciled 01/13/23 by Joseph Fermin MD albuterol sulfate 90 mcg/actuation 2 inhalations inhalation Q6H PRN 30 days cetirizine (Zyrtec) 10 mg PO DAILY PRN cyclobenzaprine 5 - 10 mg PO duloxetine 20 mg PO DAILY meloxicam 15 mg PO DAILY HPI HPI Comments History of Present Illness Details The patient presents for evaluation of complaints of hand and foot pain. We use the iPad translating device to facilitate the visit. The patient says she has known she has had fibromyalgia for about 10 years. She says the fibromyalgia symptoms have involved pains in the neck, shoulders, lower back, hips, forearms, and knees. However in the last year or so she has been noting pain in the hands, mostly at the base of the right thumb and the PIP joints in the right hand. Occasional pains occurred in the other hand in the same locations. She gets pain in the feet that she thinks is new as well. This seems to be over the soles of the feet. She thinks the feet are occasionally swollen. For her fibromyalgia she says she takes meloxicam 15 mg daily, duloxetine 20 mg daily, cyclobenzaprine 5-10 mg at night. She thinks these are somewhat helpful for her fibro symptoms but not the hand and foot pain. [facility] Medical History (Updated 01/13/23 @ 13:24 by Joseph Fermin MD) Asthma Chest crackles Chest pain Costochondritis Fibromyalgia Fibromyalgia XIOMY (generalized anxiety disorder) Hair loss Joint pain Physical exam Rash Surgical History History of History of cholecystectomy Family History Mother No problems noted. 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 Negative for appetite change, weight change, fever, chills, malaise Eyes Details: Negative for vision change, dry eyes,headaches and dizziness ENT Details: Negative for hearing change, tinnitus, oral ulcer, nose bleeds and oral dryness. Card Details: Negative chest pain, edema and syncope Resp Details: Negative for SOB, cough and wheezing GI Details: Negative indigestion/heartburn, nausea, abdominal pain, bowel changes, diarrhea, constipation and bloody stool. Details: Negative for dysuria, hematuria, nocturia, decreased force/flow and genital discharge Skin/Breast Details: Some hair thinning without any scalp rash. Negative for itching, rash, hives, Raynaud's symptoms, sun sensitivity, and skin cancer Neuro Details: Negative for epilepsy, palsy, stroke, changes in speech, tingling and weakness Psych Details: Negative for anxiety, depression and stress Endo Details: Negative for polyuria and polydypsia Asad/Lymph Details: Negative for excessive bruising or bleeding. Physical Exam Vital Signs: Last Vital Signs Temp 97.8 F 01/13/23 10:23 Pulse 68 01/13/23 10:23 BP 104/68 01/13/23 10:23 Pulse Ox 98 01/13/23 10:23 Oxygen Delivery Method Room Air 01/13/23 10:23 BMI result Body Mass Index 27.7 APPEARANCE: Patient in no acute distress EYES no redness, pupils equal and reactive to light, eyelids normal EARS: External ear normal, canal clear and tympanic membrane normal. NOSE/SINUS: Airflow through both nares, no nasal discharge, no bleeding THROAT: Oral mucosa moist, no ulcerations NECK: No thyromegaly or masses, no adenopathy, trachea midline. HEART: Regulrar rhythm, S1-S2 heard, no murmurs, rubs or gallops. LUNG: Clear to percussion and auscultation ABD: Normal bowel sounds, no organomegaly, masses or tenderness. EXTREMITIES: No edema, no calf tenderness, normal peripheral pulses. NEURO: Oriented and alert x3. No focal weakness. Reflexes symmetric. Gait normal. SKIN: No inflammatory or neoplastic lesions. Normal color and turgor JOINT EXAM:?? Cervical Spine: Mild pain with extremes of range of motion. Mild cervical muscle tenderness. Thoracic Spine:? No scoliosis.? No tenderness on palpation. Lumbar Spine:.? Alignment normal.? Full range of motion with mild discomfort at the extremes. No tenderness. Chest Wall:.? No tenderness, swelling, increased warmth or erythema. Hands: Right: There is mild bony enlargement and tenderness at the base of the thumb. There is bony enlargement at the thumb IP in all the PIP joints and although these are slightly tender. There is no soft tissue swelling, thenar atrophy, or sensory loss. Left: Mild tenderness without swelling at the thumb CMC joint. Nontender bony enlargement at the PIP joints. There is no thenar atrophy or sensory loss.? Wrists:.? Mild discomfort with flexion or extension at 80 degrees with some slight dorsal tenderness but no swelling, increased warmth or erythema. Elbows:. Normal pain-free range of motion without tenderness, swelling, increased warmth or erythema. Shoulders:.?? Full range of motion without pain. No tenderness, weakness, swelling, increased warmth or erythema. Hips:.? Full range of motion without pain. Hip bursa:.? No tenderness. Knees:.?? Normal pain-free range of motion without tenderness, swelling, increased warmth or erythema.? There is no effusion or crepitation Ankles:.? Normal pain-free range of motion without tenderness, swelling, increased warmth or erythema. Feet:.? Both feet has some slight 1st MTP bony enlargement. This is a bit more prominent on the left. There is slight tenderness at the 1st MTP and 2nd MTPs but no swelling, redness or warmth. There is no heel tenderness or instep tenderness. No sensory loss or defects in the skin envelope. Tender points:.? Mild tenderness to digital palpation at the occiput, trapezius, second rib, lateral epicondyle, knees, greater trochanter and gluteal area bilaterally. ? Results Reviewed Results Reviewed: Laboratory Tests 12/27/20 12/27/20 12/27/20 11:46 11:46 12:04 WBC 5.4 Hgb 12.6 Creatinine 0.76 Urine Protein NEG Assessment & Plan Assessment & Plan (1) Bilateral hand pain: Code(s): M79.641 - Pain in right hand; M79.642 - Pain in left hand (2) Foot pain, bilateral: Code(s): M79.671 - Pain in right foot; M79.672 - Pain in left foot (3) NSAID long-term use: Code(s): Z79.1 - [facility] (current) use of non-steroidal anti-inflammatories (NSAID) (4) Osteoarthritis of hands, bilateral: Code(s): M19.041 - Primary osteoarthritis, right hand; M19.042 - Primary osteoarthritis, left hand Plan The patient gives a fairly consistent history of widespread pains for number of years and has many tender points so she does have some underlying fibromyalgia. The current question relates to her hand findings which show evidence for osteoarthritis. I think that is the cause of her hand discomfort at the present time. It is likely some of her foot pain is also due to osteoarthritis but I do not see a lot of evidence for that currently on exam. I gave her some written information on osteoarthritis to review. She does not think the meloxicam offers much for that in terms of pain relief. Ibuprofen was also not helpful she says. She could consider adding some [id number] topical analgesics or diclofenac gel. She has use the gel in the past and thought it was helpful. I think she could combine this with the current meloxicam if she wishes. We will get some hand and foot x-rays. I will also check CBC and BMP to monitor her chronic meloxicam use. I will also check some measures of acute phase reactants. i do not think she needs sceduled rheumatologic follow-up. Orders: Orders XR hand LT min 3V Today M19.041 - Primary osteoarthritis, right hand, M19.042 - Primary osteoarthritis, left hand XR hand RT min 3V Today M19.041 - Primary osteoarthritis, right hand, M19.042 - Primary osteoarthritis, left hand XR foot LT min 3V Today M79.671 - Pain in right foot, M79.672 - Pain in left foot XR foot RT min 3V Today M79.671 - Pain in right foot, M79.672 - Pain in left foot Basic Metabolic Panel Today M79.671 - Pain in right foot, M79.672 - Pain in left foot, Z79.1 - [facility] (current) use of non-steroidal anti-inflammatories (NSAID) C Reactive Protein Today M79.671 - Pain in right foot, M79.672 - Pain in left foot Complete Blood Count Auto Diff Today M79.671 - Pain in right foot, M79.672 - Pain in left foot Erythrocyte Sedimentation Rate Today M79.671 - Pain in right foot, M79.672 - Pain in left foot Coding Level of Care Code New Pt Level 3 (27653) Diagnoses Bilateral hand pain M79.641; M79.642 Foot pain, bilateral M79.671; M79.672 NSAID long-term use Z79.1 Osteoarthritis of hands, bilateral M19.041; M19.042
[2023-01-13 10:23] VITALS: BP 104/68; PULSE 68; TEMP 36.6; O2SAT 98; BMI 27.7
== END 2023-01-13 11:30 | disposition home or self-care (01) ==
PROVIDERS: PCP Internal Medicine; Visit Provider Internal Medicine Rheumatology
DX: M79.641 Pain in right hand (principal); M79.642 Pain in left hand; M79.671 Pain in right foot; M79.672 Pain in left foot; Z79.1 Long term (current) use of non-steroidal anti-inflammatories (NSAID); M19.041 Primary osteoarthritis, right hand; M19.042 Primary osteoarthritis, left hand
CPT/HCPCS: 99203

== ENCOUNTER → 2023-01-13 10:07 | Outpatient (BNVA) | payer OTHER, SELFPAY | PROVIDERS: PCP Internal Medicine; Visit Provider Internal Medicine Rheumatology | DX: M19.041 Primary osteoarthritis, right hand (principal); M19.042 Primary osteoarthritis, left hand; M79.641 Pain in right hand; M79.642 Pain in left hand; M79.671 Pain in right foot; M79.672 Pain in left foot; Z79.1 Long term (current) use of non-steroidal anti-inflammatories (NSAID) | CPT/HCPCS: 99202 ==

== ENCOUNTER 2023-04-06 10:13 | Outpatient (AMB) | payer OTHER, SELFPAY ==
--- NOTE | 2023-04-06 10:24 | A.OFFPC_ITS ---
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 Accompanied by: Self / Same As Patient Allergies seasonal allergies Allergy (Mild, Uncoded 04/06/23 10:33) Itchy Eyes Medication List - Last Reconciled 04/06/23 by Masha Delacruz MD albuterol sulfate 90 mcg/actuation 2 inhalations inhalation Q6H PRN 30 days cetirizine (Zyrtec) 10 mg PO DAILY PRN cyclobenzaprine 5 - 10 mg PO duloxetine 20 mg PO DAILY meclizine 12.5 mg PO TID meloxicam 15 mg PO DAILY Tobacco use date assessed: 06/15/22 Dental Screening Dental Screen Date: 04/06/23 Did you have a dental visit in the last 12 months?: Yes Did you have a dental problem in the last 6 months where you did not have access to dental care?: No Was dental information given to patient?: Patient has dentist HPI HPI Comments History of Present Illness Details This is a 43-year-old female with fibromyalgia, costochondritis and asthma that comes today complaining of vertigo associated with changes in head position with no tinnitus. This started recently in which she had to go to the ER and labs were done but were normal. Meclizine did improved her vertigo. Fibromyalgia stable with duloxetine. Costochondritis was stable with meloxicam but now meloxicam is on hold by [employer] and is having symptoms. Asthma stable with rescue inhaler as needed. [facility] Medical History (Updated 04/06/23 @ 12:21 by Masha Delacruz MD) Costochondritis Chest pain Chest crackles Joint pain Fibromyalgia Asthma Rash XIOMY (generalized anxiety disorder) Physical exam Hair loss Fibromyalgia Surgical History History of cholecystectomy History of Family History Mother No problems noted. 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 Skinny Dill, Maria Eugenia Shin, Devon Beal and colleagues, with an educational amy from [employer]. Review of Systems Const All systems reviewed & are unremarkable except as noted in HPI and below Eyes Reports no additional complaints, Denies change in vision and Denies other visual disturbances ENT Reports dizziness Card Denies chest pain at rest, Denies chest pain with activity, Denies edema, Denies irregular heart rhythm, Denies claudication, Denies dyspnea, Denies dyspnea on exertion, Denies orthopnea, Denies paroxysmal nocturnal dyspnea and Denies slow heart rate Resp Denies cough, Denies dyspnea and Denies dyspnea on exertion GI Denies abdominal pain, Denies change in bowel habits, Denies excessive flatus, Denies nausea and Denies vomiting Denies urinary incontinence, Denies urinary hesitancy and Denies urinary urgency Musc Denies abnormal gait, Denies atrophy, Denies deformity and Denies limited range of motion Skin/Breast Denies bleeding lesions, Denies changing lesions and Denies rash Neuro Denies abnormal gait, Reports dizziness and Denies lack of coordination Physical exam (Primary Care) Vital Signs: Last Vital Signs BP 120/78 04/06/23 10:25 BMI result Body Mass Index 27.8 Tobacco/Smoking Status: Tobacco use Status Tobacco use date assessed 06/15/22 04/06/23 10:28 Patient Tobacco Use Status Never used Tobacco 04/06/23 10:28 e-Cigarette/Vaping Use Never Used 04/06/23 10:28 Thrive Assessment: Date of Thrive Assessment Date Thrive assessed 06/15/22 04/06/23 10:28 Const Orientation/consciousness: patient oriented x3 HENMT Head: Yes normal to inspection, Yes normocephalic and Yes atraumatic Ears: external ears normal Eyes General: appearance normal, both eyes and all related structures Eyelids: Yes eyelids normal Conjunctivae: conjunctivae normal Neck Neck: Yes normal visual inspection and Yes supple Resp Effort & Inspection: normal respiratory effort Auscultation: clear to auscultation bilaterally Cardio Jugular venous distension: no JVD Rate: regular rate Rhythm: regular rhythm Heart sounds: S1 normal heart sound present and S2 normal heart sound present Neuro General: patient oriented x3 and no focal motor deficits Romberg Test: Negative Extrem General: Yes full ROM Office Procedures Flu Questionnaire Does the patient have a severe egg allergy?: No Immunizations flu vacc [id number] 6mos up(PF) 60 mcg(15 mcgx4)/0.5 mL IM syringe Performing Provider: Masha Delacruz MD [facility] Documented (not given) by: ALYSSA Rothman on 04/06/23 10:29 Reason Not Given: Patient Refused Assessment and Plan Assessment & Plan (1) Fibromyalgia: Code(s): M79.7 - Fibromyalgia Plan: Continue duloxetine. (2) BPPV (benign paroxysmal positional vertigo): Code(s): H81.10 - Benign paroxysmal vertigo, unspecified ear Qualifiers: Laterality: unspecified laterality Qualified Code(s): H81.10 - Benign paroxysmal vertigo, unspecified ear Plan: Continue meclizine as needed. (3) Costochondritis: Code(s): M94.0 - Chondrocostal junction syndrome [Tietze] Plan: Continue meloxicam as needed. (4) Asthma: Code(s): J45.909 - Unspecified asthma, uncomplicated Qualifiers: Asthma severity: mild Asthma persistence: persistent Asthma complication type: uncomplicated Qualified Code(s): J45.30 - Mild persistent asthma, uncomplicated Plan: Use rescue inhaler as needed. Orders: Orders Influenza 8210-2020 Immunization Today Z23 - Encounter for immunization Medications: New meclizine 12.5 mg PO TID 90 tabs 0RF 30 days Coding Level of Care Code Est Pt Level 4 (09861) Diagnoses Fibromyalgia M79.7 Benign paroxysmal positional vertigo, unspecified laterality H81.10 Laterality: unspecified laterality Costochondritis M94.0 Mild persistent asthma without complication J45.30 Asthma severity: mild Asthma persistence: persistent Asthma complication type: uncomplicated Time Spent (min) 21
[2023-04-06 10:25] VITALS: BP 120/78; BMI 27.8
== END 2023-04-06 10:45 | disposition home or self-care (01) ==
PROVIDERS: PCP Internal Medicine; Visit Provider Internal Medicine
DX: M79.7 Fibromyalgia (principal); H81.10 Benign paroxysmal vertigo, unspecified ear; M94.0 Chondrocostal junction syndrome [Tietze]; J45.30 Mild persistent asthma, uncomplicated
CPT/HCPCS: 99214

== ENCOUNTER 2025-01-23 08:05 | Outpatient (REF) | payer OTHER, SELFPAY ==
[2025-01-23 12:55] LABS: Hematocrit 39.0 % (37.0-47.0); Hemoglobin 13.2 g/dl (12.0-16.0); Mean Corpuscular HGB Conc 33.8 g/dl (31.0-35.0); Mean Corpuscular Hemoglobin 29.7 pg (27.0-33.0); Mean Corpuscular Volume 87.8 fL (80.0-98.0); NRBC Abs Auto 0.000 X10*3/uL (0.0-0.012); NRBC Pct Auto 0.0 /100WBC (0.0-0.2); Platelet Count 216 X10*3/uL (160-400); Red Blood Count 4.44 X10*6/uL (4.20-5.50); White Blood Count 5.8 X10*3/uL (4.8-10.8)
[2025-01-23 17:22] LABS: CT PCR NOT DETECTED (Not Detect.); NG PCR NOT DETECTED (Not Detect.)
[2025-01-24 06:17] LABS: Follicle Stimulating Hormone 37.3 mIU/mL
== END 2025-01-23 08:06 | disposition home or self-care (01) ==
LOC: HO.LAB 08:05
PROVIDERS: PCP Internal Medicine; Visit Provider Obstetrics & Gynecology
DX: N93.9 Abnormal uterine and vaginal bleeding, unspecified (principal); Z12.31 Encounter for screening mammogram for malignant neoplasm of breast; Z12.11 Encounter for screening for malignant neoplasm of colon
CPT/HCPCS: 36415; 81025; 83001; 83002; 84443; 84702; 85027; 87491; 87591; 87626; 88175; 99202

== ENCOUNTER 2025-01-23 08:05 | Outpatient (AMB) | payer OTHER, SELFPAY ==
--- NOTE | 2025-01-23 08:09 | MHC.OFFVIS ---
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 Information Interpreted: non-clinical & clinical Director Heart: Director Heart Present (Ninfa SHAH) Accompanied by: Self / Same As Patient Allergies seasonal allergies Allergy (Mild, Uncoded 01/23/25 08:13) Itchy Eyes Is last menstrual period known: Yes HPI Comments Details: Presenting complaining of regular menstrual cycles of the last few months with no associated symptoms Last co testing many years ago No previous screening mammogram No previous screening colonoscopy PFSH Medical History Costochondritis Chest pain Chest crackles Joint pain Fibromyalgia Asthma Rash XIOMY (generalized anxiety disorder) Physical exam Hair loss Fibromyalgia Surgical History History of cholecystectomy History of Family History Mother No problems noted. 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 Current occupational exposures/hazards: No Cognitive needs: No Hearing needs: No Vision needs: No Female Reproductive History Menstrual Age of Menarche: 12 Duration of menses: 3-5 days Total pregnancies: 4 Full term: 4 Number of Living Children: 4 Review of Systems Const All systems reviewed & are unremarkable except as noted in HPI and below Card Reports as per HPI Resp Reports as per HPI GI Reports as per HPI and Reports no additional complaints Reports as per HPI Physical Exam Vital Signs: Last Vital Signs BP 114/68 01/23/25 08:12 BMI result Body Mass Index 28.5 Const General: cooperative, healthy appearing and comfortable Chest Chest palpation & inspection: normal inspection of the chest and normal palpation of entire chest wall Breast/axilla inspection: normal inspection of the breasts and normal inspection of the axillae Breast/axilla palpation: normal palpation of the breasts, normal palpation of the axillae and no axillary lymphadenopathy Resp Effort & Inspection: normal respiratory effort Auscultation: clear to auscultation bilaterally Percussion: percussion normal Cardio Palpation: normal PMI Rate: regular rate Rhythm: regular rhythm Heart sounds: no murmurs and no rubs Peripheral pulses: Peripheral pulses 2+ throughout GI Inspection: Yes normal to inspection Palpation (GI): Soft to palpation, nontender, no guarding, not rigid and No hepatosplenomegaly present Percussion: Yes normal to percussion Auscultation: normal bowel sounds Rectal Exam - Female: deferred General: Yes bladder normal to palpation External Female Exam: No lesion Speculum Exam - Vagina: normal appearance of the vagina, normal palpation, normal vaginal discharge and not erythematous Speculum Exam - Cervix: normal appearance of the cervix and normal palpation Bimanual exam- vagina & uterus: normal bimanual exam, normal palpation, uterine size normal, bladder normal to palpation, consistency normal and normal palpation Bimanual Exam- Adnexa, other: normal adnexae, no masses and no tenderness Results AMB Test Urine AMB Test Urine Negative Last Edit by Ninfa Young CMA on 01/23/25 08:27 Results Reviewed Results Reviewed: Laboratory Last Values Tst Clinic Negative 01/23/25 08:25 Assessment & Plan Assessment & Plan (1) Abnormal uterine bleeding (AUB): Code(s): N93.9 - Abnormal uterine and vaginal bleeding, unspecified Category: Medical Plan: Referral to GI for screening colonoscopy placed Screening mammogram, Co testing done, GC and chlamydia taken CBC, TSH, HCG, FSH/LH and pelvic ultrasound ordered. Discussed with the patient the different causes of abnormal bleeding including thyroid disorders, uterine and ovarian pathology, endometrial hyperplasia, carcinoma and other potential causes. Discussed with the patient the work up including CBC (to r/o anemia), TSH, FSH/LH pelvic Ultrasound, endometrial biopsy to r/o endometrial pathology. All questions answered and the patient verbalized understanding. Instructed the patient to schedule an appointment for an endometrial biopsy in 2 weeks. Orders: Orders AMB HCG Urine Test Today Z32.02 - Encounter for test, result negative Complete Blood Count no Diff Today N93.9 - Abnormal uterine and vaginal bleeding, unspecified TSH reflex Free T4 Today N93.9 - Abnormal uterine and vaginal bleeding, unspecified Follicle Stimulating Hormone Today N93.9 - Abnormal uterine and vaginal bleeding, unspecified MM tomosynthesis screening BI Today Z12.31 - Encounter for screening mammogram for malignant neoplasm of breast HCG Quantitative Today N93.9 - Abnormal uterine and vaginal bleeding, unspecified Lutenizing Hormone Today N93.9 - Abnormal uterine and vaginal bleeding, unspecified US pelvic and transvaginal Today N93.9 - Abnormal uterine and vaginal bleeding, unspecified Referrals Gastroenterology Referral Z12.11 - Encounter for screening for malignant neoplasm of colon Coding Level of Care Code New Pt Level 3 (69365) Diagnoses Abnormal uterine bleeding (AUB) N93.9
[2025-01-23 08:12] VITALS: BP 114/68; BMI 28.5
--- OUTSIDE RECORDS SUMMARY | 2025-01-23 08:43 | XMS_ITS | Clinical Summary ---
Author Organization [facility] Address [address] [place] [address] [place] [phone] Phone Care Team Providers Care Ghost Writer Name Role Phone Masha Bain MD Primary Care Provid er Allergies No known active allergies Medications cyclobenzaprine (FLEXERIL) 5 MG tablet 3 Active gabapentin (NEURONTIN) 100 MG capsule TOME 1 C PSULA POR V A ORAL CADA NOCHE 3 Active VENTOLIN HFA 90 mcg/actuation inhaler PLEASE SEE ATTACHED FOR DETAILED DIRECTIONS 3 Active meclizine (ANTIVERT) 12.5 mg tablet Take 1 tablet (12.5 mg total) by mouth 3 (three) times a day as needed. 15 tablet 3 Active Encounters Date Type Department Care Team Description 01/10/2025 11:00 AM EDT - 01/10/2025 11:59 PM EDT Hospital Encounter [facility] [address] [place] [address] Tawny Blue PA-C Discharge Disposition: Home or Self Care 01/09/2025 9:28 PM EDT - 01/10/2025 12:41 AM EDT Emergency [facility] [address] [place] [address] Discharge Disposition: Home or Self Care from Last 3 Months Social History Tobacco Use Types Packs/Day Years Used Date Smoking Tobacco: Never Assessed Education Answer Date Recorded Are you interested in more education? Not on cresencio e 04/01/2023 Are you concerned about learning? Not on file 04/01/2023 No 04/01/2023 No 04/01/2023 Food Answer Date Recorded Within the past 6 months we worried whether our food would run out before we got money to buy more. Never True 01/10/2025 Within the past 6 months the food we bought just didn't last and we didn't have enough money to get more. Never True Residential Stability Answer Date Recor ded What is your housing situation today? I have jaylen sing 01/10/2025 How many times have you move d in the past 12 months? Zero (I did not move) 01/10/2025 Paying for Meds Answer Date Recorded Do you have trouble paying for medicines? No 01/10/2025 Paying Utility Bills Answer Date Record ed Do you have trouble paying your heating or elect ricity bill? No 01/10/2025 Transportation Answer Date Recorded Has the lack of transportati on kept you from medical appointments or from getting medications? No 01/10/2025 Digital Access Answer Date Recorded No 01/10/2025 Yes 01/10/2025 Do you have reliable internet access at home? Ye s 01/10/2025 Do you have a device (e.g., phone, tablet, computer) with a working camera? Yes 01/10/2025 Intimate Partner Violence Answer Date R ecorded Are you denied basic needs s uch as food, clothing, or medical care? No 01/09/2025 In the past 12 months have y ou been in a relationship with a person who hurts, threatens, or tries to control you? No 01/09/2025 Are you denied basic needs s uch as food, clothing, or medical care? No 01/09/2025 In the past 12 months have y ou been in a relationship with a person who hurts, threatens, or tries to control you? No 01/09/2025 Comments Unknown Sex and Gender Information Value Date Recorded Sex Assigned at Not on file Legal Sex Female 10:48 PM EST Gender Identity Not on file Sexual Orientation Not on file Last Filed Vital Signs Vital Sign Reading Time Taken Comments Blood Pressure 112/82 01/10/2025 12:38 AM EDT Pulse 85 01/10/2025 12:38 AM EDT Temperature 35.6 C (96.1 F) 01/09/2025 6:25 PM EDT Respiratory Rate 16 01/10/2025 12:38 AM EDT Oxygen Saturation 100% 01/09/2025 10:15 PM EDT Inhaled Oxygen Concentration - - Weight 67.6 kg (149 lb) 01/09/2025 4:30 PM EDT Height 154.9 cm (5' 1 ) 01/09/2025 4:30 PM EDT Body Mass Index 28.15 01/09/2025 4:30 PM EDT Plan of Treatment Health Maintenance Due Date Last Done Comments Adult Td,Tdap Booster 1978 LIPID PANEL 1978 DEPRESSION SCREENING 1990 SMOKING Hx and SMOKELESS TOB ACCO SCREENING 1991 HEPATITIS C SCREENING 02/25/1996 HIV ONE-TIME SCREENING (18-6 5 YEARS) 02/25/1996 PAP SMEAR 1999 MAMMOGRAM 2018 COLOGUARD 2023 COLONOSCOPY 2023 COLORECTAL CANCER SCREENING 2023 FIT TEST 2023 FOBT 2023 SIGMOIDOSCOPY 2023 VIRTUAL COLONOSCOPY 2023 INFLUENZA VACCINE (#1) 2024 COVID-19 VACCINE (1 - 2023-2 5 season) 2025 SCREENING FOR DIABETES 01/10/2028 01/09/2025 HEPATITIS A VACCINES Aged Out No long er eligible based on patient's age to complete this topic HIB VACCINES Aged Out No longer eligi ble based on patient's age to complete this topic MENINGOCOCCAL VACCINES (ACWY) Aged Out No longer eligible based on patient's age to complete this topic MENINGOCOCCAL VACCINES (B) Aged Out N o longer eligible based on patient's age to complete this topic PNEUMOCOCCAL VACCINES (0-49 years) Aged Out No longer eligible based on patient's age to complete this topic Medical Devices Not on file Procedures Procedure Name Priority Date/Time Associated Diagnosis Comments US PELVIS TRANSABDOMINAL PLUS TRANSVAGINAL Routine 01/10/2025 11:50 AM EDT XR SACRUM AND COCCYX STAT 01/09/2025 10:52 PM EDT XR LUMBOSACRAL SPINE 2-3 VIEWS STAT 01/09/2025 10:52 PM EDT HCG, SERUM QUALITATIVE STAT 4:55 PM EDT BASIC METABOLIC PANEL STAT 01/09/2025 4:55 PM EDT CBC AND DIFFERENTIAL STAT 01/09/2025 4:55 PM EDT URINE SEDIMENT STAT 01/09/2025 4:39 PM EDT URINALYSIS W/REFLEX URINE CULTURE STAT 01/09/2025 4:39 PM EDT ECG 12-LEAD STAT 01/09/2025 4:36 PM EDT from Last 3 Months Results * US PELVIS TRANSABDOMINAL PLUS TRANSVAGINAL (01/10/2025 11:50 AM EDT) Anatomical Region Laterality Modality Pelvis, Uterus/Adnexa Ultrasound 01/10/2025 11:5 4 AM EDT Impressions 01/10/2025 12:07 PM EDT 1. Heterogeneous endometrial stripe measuring up to 12 mm at the fundus. The lower uterine segment and endocervical canal are dilated with fluid containing complex echoes without associated vascularity, favored to be due to blood products. 2. Tubular cystic structure within the right adnexa measuring approximately 4 cm, likely a hydrosalpinx. 3. Otherwise unremarkable ovaries for age with dominant left ovarian follicles noted, as described. Narrative 01/10/2025 12:07 PM EDT US PELVIS TRANSABDOMINAL AND TRANSVAGINAL Referring clinician's provided indication for this examination in Epic: Abnormal Vaginal Bleeding, abnormal vaginal bleeding for one month, worse over the last 3-4 days with low back pain. TECHNIQUE: Pelvic Ultrasound Transabdominal performed for global imaging of the pelvis. Pelvic Ultrasound Transvaginal performed for detailed imaging of the endometrium and/or adnexa. COMPARISON: None. FINDINGS: Uterus: Size: Measures 7.8 x 3.9 x 5.7 cm. Orientation: anteverted Myometrium: Mildly heterogeneous without focal myometrial mass. Endometrium: Heterogeneous measuring up to 12 mm at the fundus. Within the lower uterine segment, the endometrium is dilated with fluid containing mobile complex echoes without associated vascularity, favored to be due to blood products. Fluid in abnormal echoes extend into the endocervical canal which is also dilated, favored to be due to blood products. Of note, the network architect manager noted a moderate amount of blood upon removal of the transvaginal ultrasound probe. Right adnexa: Ovary: Measures 3.3 x 2.3 x 2.1 cm and is unremarkable. Within the right adnexa there is a tubular cystic structure without associated vascularity measuring approximate 4.0 cm favored to be due to a hydrosalpinx and less likely a paraovarian cyst. Left adnexa: Ovary: Measures 3.7 x 3.0 x 1.5 cm as only seen on transabdominal imaging demonstrating a dominant follicle measuring up to 2.0 cm. Free fluid: No significant free fluid. Procedure Note Jhoan Moreira MD - 01/10/2025 US PELVIS TRANSABDOMINAL AND TRANSVAGINAL Referring clinician's provided indication for this examination in Epic:Abnormal Vaginal Bleeding, abnormal vaginal bleeding for one month, worseover the last 3- 4 days with low back pain. TECHNIQUE: Pelvic Ultrasound Transabdominal performed for global imagingof the pelvis. Pelvic Ultrasound Transvaginal performed for detailedimaging of the endometrium and/or adnexa. COMPARISON: None. FINDINGS: Uterus: Size: Measures 7.8 x 3.9 x 5.7 cm. Orientation: anteverted Myometrium: Mildly heterogeneous without focal myometrial mass. Endometrium: Heterogeneous measuring up to 12 mm at the fundus. Within thelower uterine segment, the endometrium is dilated with fluid containingmobile complex echoes without associated vascularity, favored to be due toblood products. Fluid in abnormal echoes extend into the endocervicalcanal which is also dilated, favored to be due to blood products. Of note,the network architect manager noted a moderate amount of blood upon removal of thetransvaginal ultrasound probe. Right adnexa: Ovary: Measures 3.3 x 2.3 x 2.1 cm and is unremarkable. Within the right adnexa there is a tubular cystic structure withoutassociated vascularity measuring approximate 4.0 cm favored to be due to ahydrosalpinx and less likely a paraovarian cyst. Left adnexa: Ovary: Measures 3.7 x 3.0 x 1.5 cm as only seen on transabdominal imagingdemonstrating a dominant follicle measuring up to 2.0 cm. Free fluid: No significant free fluid. IMPRESSION: 1. Heterogeneous endometrial stripe measuring up to 12 mm at the fundus.The lower uterine segment and endocervical canal are dilated with fluidcontaining complex echoes without associated vascularity, favored to bedue to blood products. 2. Tubular cystic structure within the right adnexa measuringapproximately 4 cm, likely a hydrosalpinx. 3. Otherwise unremarkable ovaries for age with dominant left ovarianfollicles noted, as described. us Tawny Blue PA-C IMG US PELVIS Final Resul t * XR Sacrum and Coccyx (01/09/2025 10:52 PM EDT) Anatomical Region Laterality Modality L-spine Computed Radiogr aphy 01/09/2025 11:4 4 PM EDT Impressions 01/09/2025 11:49 PM EDT No displaced fracture. Narrative 01/09/2025 11:49 PM EDT XR LUMBOSACRAL SPINE 2-3 VIEWS, XR SACRUM AND COCCYX Referring clinician's provided indication for this examination in [facility]: Pain COMPARISON: None available. FINDINGS: Lumbar spine: Normal alignment. Normal vertebral body heights. Normal intervertebral disc spaces. Intact sacroiliac joints. No sacroiliitis. Sacrum and coccyx: No displaced fracture. Procedure Note Cleveland Garcia MBBS - 01/09/2025 XR LUMBOSACRAL SPINE 2-3 VIEWS, XR SACRUM AND COCCYX Referring clinician's provided indication for this examination in [facility]:Pain COMPARISON: None available. FINDINGS: Lumbar spine: Normal alignment. Normal vertebral body heights. Normalintervertebral disc spaces. Intact sacroiliac joints. No sacroiliitis. Sacrum and coccyx: No displaced fracture. IMPRESSION: No displaced fracture. Tawny Blue PA-C IMG XR SPINE Final Resul t * XR LUMBOSACRAL SPINE 2-3 VIEWS (01/09/2025 10:52 PM EDT) Anatomical Region Laterality Modality L-spine Computed Radiogr aphy 01/09/2025 11:4 4 PM EDT Impressions 01/09/2025 11:49 PM EDT No displaced fracture. Narrative 01/09/2025 11:49 PM EDT XR LUMBOSACRAL SPINE 2-3 VIEWS, XR SACRUM AND COCCYX Referring clinician's provided indication for this examination in [facility]: Pain COMPARISON: None available. FINDINGS: Lumbar spine: Normal alignment. Normal vertebral body heights. Normal intervertebral disc spaces. Intact sacroiliac joints. No sacroiliitis. Sacrum and coccyx: No displaced fracture. Procedure Note Cleveland Garcia MBBS - 01/09/2025 XR LUMBOSACRAL SPINE 2-3 VIEWS, XR SACRUM AND COCCYX Referring clinician's provided indication for this examination in [facility]:Pain COMPARISON: None available. FINDINGS: Lumbar spine: Normal alignment. Normal vertebral body heights. Normalintervertebral disc spaces. Intact sacroiliac joints. No sacroiliitis. Sacrum and coccyx: No displaced fracture. IMPRESSION: No displaced fracture. Tawny MARMOLEJO-C IMG XR SPINE Final Resul t * HCG, serum qualitative (01/09/2025 4:55 PM EDT) HCG, QUALITATIVE Negative Negative IU/L [facility] Blood 01/09/2025 4:55 PM EDT 01/09/2025 5:56 PM EDT us Ganesh Najera MD LAB BLOOD ORDERAB LES Final Result [facility] [address] [place] [address] * CBC and differential (01/09/2025 4:55 PM EDT) Pathologist [facility] WBC 5.20 4.00 - 11.00 K/uL [facility] RBC 4.36 4.00 - 5.20 M/uL [facility] HGB 13.2 12.0 - 16.0 g/dL [facility] HCT 39.1 36.0 - 46.0 % [facility] PLT 217 150 - 450 K/uL [facility] MCV 89.7 80.0 - 100.0 fL [facility] MCH 30.3 27.0 - 31.0 pg [facility] MCHC 33.8 32.0 - 36.0 g/dL [facility] RDW 12.6 11.5 - 14.5 % [facility] MPV 11.5 8.4 - 12.0 fL [facility] NRBC 0.00 0.00 /100 WBCs [facility] ABSOLUTE NRBC 0.00 0.00 K/uL [facility] DIFF METHOD Auto [facility] NEUTS 62.5 48.0 - 76.0 % [facility] LYMPHS 28.5 18.0 - 41.0 % [facility] MONOS 6.3 4.0 - 11.0 % [facility] EOS 1.5 0.0 - 5.0 % [facility] BASOS 1.0 0.0 - 1.5 % [facility] Granulocytes, immature (%) 0.2 0.0 - 0.9 % [facility] ABSOLUTE NEUTS 3.25 1.92 - 7.60 K/uL [facility] ABSOLUTE LYMPHS 1.48 0.72 - 4.10 K/uL [facility] ABSOLUTE MONOS 0.33 0.16 - 1.10 K/uL [facility] ABSOLUTE EOS 0.08 0.00 - 0.50 K/uL [facility] ABSOLUTE BASOS 0.05 0.00 - 0.15 K/uL [facility] Granulocytes, immature 0.01 0.00 - 0.09 K/uL [facility] Blood 01/09/2025 4:55 PM EDT 01/09/2025 5:56 PM EDT us Ganesh Najera MD LAB BLOOD ORDERAB LES Final Result Performing Organization Address City/[facility]/ZIP Co de Phone Number [address] [address] * (ABNORMAL) Basic metabolic panel (01/09/2025 4:55 PM EDT) SODIUM 140 133 - 146 mmol/L [facility] CHLORIDE 103 96 - 108 mmol/L [facility] POTASSIUM 4.4 3.3 - 5.1 mmol/L [facility] Comment:Specimen slightly he molyzed, result may be falsely elevated. CO2 27 21 - 35 mmol/L [facility] BUN 24(H) 6 - 19 mg/dL [facility] CREATININE 0.70 0.5 - 1.5 mg/dL [facility] GLUCOSE 88 70 - 99 mg/dL [facility] CALCIUM 9.4 8.4 - 10.3 mg/dL [facility] EGFR 108 >59 mL/min/1.7 3m2 [facility] Comment:Estimated glomerular filtration rate calculated using the CKD-EPI refit equation. ANION GAP 14 10 - 20 mmol/L [facility] Blood 01/09/2025 4:55 PM EDT 01/09/2025 5:56 PM EDT us Ganesh Najera MD LAB BLOOD ORDERAB LES Final Result Performing Organization Address [facility]/ZIP Co de Phone Number [address] [address] * (ABNORMAL) Urinalysis w/reflex Urine Culture (01/09/2025 4:39 PM EDT) COLOR Yellow Yellow [facility] CLARITY Clear [facility] GLUCOSE Negative Negative [facility] BILI Negative Negative [facility] KETONES Negative Negative [facility] SPECIFIC GRAVITY 1.015 1.005 - 1.030 [facility] BLOOD 3+(A) Negative [facility] PH 7.0 5.0 - 8.0 [facility] Protein-UA Negative Negative [facility] NITRITE Negative Negative [facility] Leukocyte esterase, ur Negative Negative [facility] Urine (Urine) 01/09/2025 4:3 9 PM EDT 01/09/2025 5:45 PM EDT Ganesh Najera MD URINE ORDERABLES Final Result Performing Organization Address [facility] Co de Phone Number [address] [address] * (ABNORMAL) Urine sediment (01/09/2025 4:39 PM EDT) WBC 0-4(A) NONE SEEN /hpf [facility] RBC 6-10(A) NONE SEEN /hpf [facility] URINE EPITHELIAL 0-4(A) NONE SEEN [facility] MUCUS Trace(A) NONE SEEN /hpf [facility] BACTERIA Trace(A) NONE SEEN /hpf [facility] CRYSTALS 1+ [facility] Comment:AMORPHOUS 01/09/2025 4:39 PM EDT 01/09/2025 5:45 PM EDT us Ganesh Najera MD URINE ORDERABLES Final Result Performing Organization Address [facility]/ZIP Co de Phone Number [address] [address] * ECG 12-LEAD (01/09/2025 4:36 PM EDT) Ventricular Rate EKG/MIN 82 BPM [facility] Atrial Rate 82 BPM [facility] VT Interval 150 ms [facility] QRS Duration 68 ms [facility] QT Interval 370 ms [facility] QTC Interval 432 ms [facility] P [place] 47 degrees [facility] R Wave [place] 13 degrees [facility] T Wave [place] 42 degrees [facility] 01/09/2025 4:36 PM EDT 01/10/2025 1:54 PM EDT Narrative [facility] - 01/10/2025 1:54 PM EDT Normal sinus rhythm Low voltage QRS Borderline ECG When compared with ECG of 01-Apr-2023 22:55, No significant change was found Confirmed by Bandar Milton ([id number]) on 01/10/2025 1:54:42 PM us Ganesh Najera MD ECG ORDERABLES F inal Result [facility] from Last 3 Months Insurance [facility] NON NSPG PCP S[place] [employer] [facility] NON [facility]SPG PCP [place] [employer] NON NSPG PCP S[place] [employer] NON NSPG PCP [place] [employer] NON NSPG PCP [place] NON NSPG PCP [place] [address] Care Teams Ghost Writer Relationship Specialty Start Date End Date Masha Bain MD [address] [place] [address] PCP - General Internal Medicine 04/01/23 Additional Source Comments The information contained in this document represents components of the legal health record. It is not the complete legal health record.[facility]
== END 2025-01-23 08:49 | disposition home or self-care (01) ==
LOC: HO.HWS 08:05
PROVIDERS: PCP Internal Medicine; Visit Provider Obstetrics & Gynecology
DX: Z32.02 Encounter for pregnancy test, result negative (principal); N93.9 Abnormal uterine and vaginal bleeding, unspecified
CPT/HCPCS: 99203

== ENCOUNTER 2025-02-06 08:36 | Outpatient (REF) | payer OTHER, SELFPAY | END 2025-02-06 08:37 | disposition home or self-care (01) | LOC: HO.LNP 08:36 | PROVIDERS: PCP Internal Medicine; Visit Provider Obstetrics & Gynecology | DX: N39.0 Urinary tract infection, site not specified (principal); R31.29 Other microscopic hematuria | CPT/HCPCS: 87086; 87088; 87186; 99212 ==

== ENCOUNTER 2025-02-06 08:36 | Outpatient (AMB) | payer OTHER, SELFPAY ==
--- NOTE | 2025-02-06 08:38 | MHC.OFFVIS ---
Intake Visit Reasons: EMB Intake Note: Patient complains of 2 days burning when urinating Advertising Analyst: Advertising Analyst Present (Latosha) Accompanied by: Self / Same As Patient Allergies seasonal allergies Allergy (Mild, Uncoded 01/23/25 08:13) Itchy Eyes HPI Comments Details: Presenting for EMB complaining of burning urination associated with frequency, no nausea or vomiting no fever or chills or flank pain PFSH Medical History Costochondritis Chest pain Chest crackles Joint pain Fibromyalgia Asthma Rash XIOMY (generalized anxiety disorder) Physical exam Hair loss Fibromyalgia Surgical History History of cholecystectomy History of Family History Mother No problems noted. 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 Current occupational exposures/hazards: No Cognitive needs: No Hearing needs: No Vision needs: No Female Reproductive History Menstrual Age of Menarche: 12 Review of Systems Const All systems reviewed & are unremarkable except as noted in HPI and below Reports as per HPI and Reports no additional complaints GI Reports no additional complaints Reports no additional complaints Assessment & Plan Assessment & Plan (1) UTI (urinary tract infection): Code(s): N39.0 - Urinary tract infection, site not specified Category: Medical Plan: Urine dip was positive for leukocyte, nitrites, microscopic hematuria, will send urine for culture, treat with Macrobid 100 mg p.o. b.i.d. for 5 days. Instructions given to patient to schedule a follow-up appointment for repeat urine dip and EMB in a week And to call or go to emergency room in case of fever above 100.4, nausea or vomiting, persistent of her symptoms within 24-48 hours and or flank pain. All questions answered, the patient verbalized understanding Medications: New nitrofurantoin monohyd/m-cryst 100 mg (Macrobid) 100 mg PO BID 10 caps 0RF 5 days Coding Level of Care Code Est Pt Level 3 (12686) Diagnoses UTI (urinary tract infection) N39.0
--- OUTSIDE RECORDS SUMMARY | 2025-02-06 09:34 | XMS_ITS | Clinical Summary ---
Author Organization [facility] Address [address] [place] [address] [place] [phone] Phone Care Team Providers Care Director Of Distribution Name Role Phone Masha Bain MD Primary [...] - 01/10/2025 11:59 PM EDT Hospital Encounter [facility] [address] [place] [address] Tawny Blue PA-C Discharge Disposition: Home or Self Care 01/09/2025 9:28 PM EDT - 01/10/2025 12:41 AM EDT Emergency [facility] [address] [place] [address] Discharge Disposition: Home or Self Care from [...] due to blood products. 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 Of note,the asphalt raker noted a moderate amount of blood upon [...] clinician's provided indication for this examination in [facility]: Pain COMPARISON: None available. FINDINGS: Lumbar spine: Normal alignment. Normal vertebral body heights. Normal intervertebral disc spaces. Intact sacroiliac joints. No sacroiliitis. Sacrum and coccyx: No displaced fracture. Procedure Note Cleveland Garcia MBBS - 01/09/2025 XR LUMBOSACRAL SPINE 2-3 VIEWS, XR SACRUM AND COCCYX Referring clinician's provided indication for this examination in [facility]:Pain COMPARISON: None available. FINDINGS: Lumbar spine: [...] clinician's provided indication for this examination in [facility]: Pain COMPARISON: None available. FINDINGS: Lumbar spine: Normal alignment. Normal vertebral body heights. Normal intervertebral disc spaces. Intact sacroiliac joints. No sacroiliitis. Sacrum and coccyx: No displaced fracture. Procedure Note Cleveland Garcia MBBS - 01/09/2025 XR LUMBOSACRAL SPINE 2-3 VIEWS, XR SACRUM AND COCCYX Referring clinician's provided indication for this examination in [facility]:Pain COMPARISON: None available. FINDINGS: Lumbar spine: Normal alignment. Normal vertebral body heights. Normalintervertebral disc spaces. Intact sacroiliac joints. No sacroiliitis. Sacrum and coccyx: No displaced fracture. IMPRESSION: No displaced fracture. Tawny MARMOLEJO-C IMG XR SPINE Final Resul t * HCG, serum qualitative (01/09/2025 4:55 PM EDT) HCG, QUALITATIVE Negative Negative IU/L [facility] Blood 01/09/2025 4:55 PM EDT 01/09/2025 5:56 PM EDT us Ganesh Najera MD LAB BLOOD ORDERAB LES Final Result [facility] [address] [place] [address] * CBC and differential (01/09/2025 4:55 PM EDT) Pathologist [facility] WBC 5.20 4.00 - 11.00 K/uL [facility] RBC 4.36 4.00 - 5.20 M/uL [facility] HGB 13.2 12.0 - 16.0 g/dL [facility] HCT 39.1 36.0 - 46.0 % [facility] PLT 217 150 - 450 K/uL [facility] MCV 89.7 80.0 - 100.0 fL [facility] MCH 30.3 27.0 - 31.0 pg [facility] MCHC 33.8 32.0 - 36.0 g/dL [facility] RDW 12.6 11.5 - 14.5 % [facility] MPV 11.5 8.4 - 12.0 fL [facility] NRBC 0.00 0.00 /100 WBCs [facility] ABSOLUTE NRBC 0.00 0.00 K/uL [facility] DIFF METHOD Auto [facility] NEUTS 62.5 48.0 - 76.0 % [facility] LYMPHS 28.5 18.0 - 41.0 % [facility] MONOS 6.3 4.0 - 11.0 % [facility] EOS 1.5 0.0 - 5.0 % [facility] BASOS 1.0 0.0 - 1.5 % [facility] Granulocytes, immature (%) 0.2 0.0 - 0.9 % [facility] ABSOLUTE NEUTS 3.25 1.92 - 7.60 K/uL [facility] ABSOLUTE LYMPHS 1.48 0.72 - 4.10 K/uL [facility] ABSOLUTE MONOS 0.33 0.16 - 1.10 K/uL [facility] ABSOLUTE EOS 0.08 0.00 - 0.50 K/uL [facility] ABSOLUTE BASOS 0.05 0.00 - 0.15 K/uL [facility] Granulocytes, immature 0.01 0.00 - 0.09 K/uL [facility] Blood 01/09/2025 4:55 PM EDT 01/09/2025 5:56 PM EDT us Ganesh Najera MD LAB BLOOD ORDERAB LES Final Result Performing Organization Address City/[facility]/ZIP Co de Phone Number [address] [address] * (ABNORMAL) Basic metabolic panel (01/09/2025 4:55 PM EDT) SODIUM 140 133 - 146 mmol/L [facility] CHLORIDE 103 96 - 108 mmol/L [facility] POTASSIUM 4.4 3.3 - 5.1 mmol/L [facility] Comment:Specimen slightly he molyzed, result may be falsely elevated. CO2 27 21 - 35 mmol/L [facility] BUN 24(H) 6 - 19 mg/dL [facility] CREATININE 0.70 0.5 - 1.5 mg/dL [facility] GLUCOSE 88 70 - 99 mg/dL [facility] CALCIUM 9.4 8.4 - 10.3 mg/dL [facility] EGFR 108 >59 mL/min/1.7 3m2 [facility] Comment:Estimated glomerular filtration rate calculated using the CKD-EPI refit equation. ANION GAP 14 10 - 20 mmol/L [facility] Blood 01/09/2025 4:55 PM EDT 01/09/2025 5:56 PM EDT us Ganesh Najera MD LAB BLOOD ORDERAB LES Final Result Performing Organization Address [facility]/ZIP Co de Phone Number [address] [address] * (ABNORMAL) Urinalysis w/reflex Urine Culture (01/09/2025 4:39 PM EDT) COLOR Yellow Yellow [facility] CLARITY Clear [facility] GLUCOSE Negative Negative [facility] BILI Negative Negative [facility] KETONES Negative Negative [facility] SPECIFIC GRAVITY 1.015 1.005 - 1.030 [facility] BLOOD 3+(A) Negative [facility] PH 7.0 5.0 - 8.0 [facility] Protein-UA Negative Negative [facility] NITRITE Negative Negative [facility] Leukocyte esterase, ur Negative Negative [facility] Urine (Urine) 01/09/2025 4:3 9 PM EDT 01/09/2025 5:45 PM EDT Ganesh Najera MD URINE ORDERABLES Final Result Performing Organization Address [facility] Co de Phone Number [address] [address] * (ABNORMAL) Urine sediment (01/09/2025 4:39 PM EDT) WBC 0-4(A) NONE SEEN /hpf [facility] RBC 6-10(A) NONE SEEN /hpf [facility] URINE EPITHELIAL 0-4(A) NONE SEEN [facility] MUCUS Trace(A) NONE SEEN /hpf [facility] BACTERIA Trace(A) NONE SEEN /hpf [facility] CRYSTALS 1+ [facility] Comment:AMORPHOUS 01/09/2025 4:39 PM EDT 01/09/2025 5:45 PM EDT us Ganesh Najera MD URINE ORDERABLES Final Result Performing Organization Address [facility]/ZIP Co de Phone Number [address] [address] * ECG 12-LEAD (01/09/2025 4:36 PM EDT) Ventricular Rate EKG/MIN 82 BPM [facility] Atrial Rate 82 BPM [facility] WI Interval 150 ms [facility] QRS Duration 68 ms [facility] QT Interval 370 ms [facility] QTC Interval 432 ms [facility] P [place] 47 degrees [facility] R Wave [place] 13 degrees [facility] T Wave [place] 42 degrees [facility] 01/09/2025 4:36 PM EDT 01/10/2025 1:54 PM EDT Narrative [facility] - 01/10/2025 1:54 PM EDT Normal sinus rhythm Low voltage QRS Borderline ECG When compared with ECG of 01-Apr-2023 22:55, No significant change was found Confirmed by Bandar Milton ([id number]) on 01/10/2025 1:54:42 PM us Ganesh Najera MD ECG ORDERABLES F inal Result [facility] from Last 3 Months Insurance [facility] NON NSPG PCP S[facility] [employer] [facility] NON NSPG PCP [place] [employer] NON NSPG PCP S[employer]ITY CONNE[employer] NON NSPG PCP S[employer] NON NSPG PCP [place] NON NSPG PCP [facility] [employer] Care Teams Director Of Distribution Relationship Specialty Start Date End Date Masha Bain MD [address] [place] [address] PCP - General Internal Medicine 04/01/23 Additional Source Comments The information contained in this document represents components of the legal health record. It is not the complete legal health record.[facility]
== END 2025-02-06 08:58 | disposition home or self-care (01) ==
LOC: HO.HWS 08:36
PROVIDERS: PCP Internal Medicine; Visit Provider Obstetrics & Gynecology
DX: N39.0 Urinary tract infection, site not specified (principal)
CPT/HCPCS: 99213

== ENCOUNTER 2025-02-19 12:36 | Outpatient (AMB) | payer OTHER, SELFPAY ==
[2025-02-19 12:43] VITALS: BMI 36.1
--- NOTE | 2025-02-19 12:43 | MHC.OFFVIS ---
Vital Signs 02/19/25 12:43 Height 5 ft 1 in Weight 191 lb BMI 36.1 Intake Visit Reasons: EMB/Urine dip Code Inspector Required: No Information Interpreted: non-clinical & clinical Belt Splicer: Belt Splicer Present (Ninfa SHAH) Accompanied by: Self / Same As Patient Allergies seasonal allergies Allergy (Mild, Uncoded 02/19/25 12:49) Itchy Eyes HPI Comments Details: Presenting for EMB [facility] Medical History Costochondritis Chest pain Chest crackles Joint pain Fibromyalgia Asthma Rash XIOMY (generalized anxiety disorder) Physical exam Hair loss Fibromyalgia Surgical History History of cholecystectomy History of Family History Mother No problems noted. 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 Current occupational exposures/hazards: No Cognitive needs: No Hearing needs: No Vision needs: No Female Reproductive History Menstrual Age of Menarche: 12 Review of Systems Const All systems reviewed & are unremarkable except as noted in HPI and below Reports as per HPI and Reports no additional complaints GI Reports no additional complaints Reports no additional complaints Physical Exam Vital Signs: BMI result Body Mass Index 36.1 Office Procedures Endometrial Biopsy Details: The patient was counseled regarding the indication and benefits of endometrial sampling to rule out endometrial pathology including not limited to endometrial hyperplasia or endometrial cancer and others; The alternatives (Either do nothing vs. hysteroscopy D&C) & the risks were discussed with the patient including but not limited: pain, uterine perforation, bleeding, infection, possible injury to bladder, bowel, ureter, possible need for blood transfusion with all its possible risks. The patient verbalized understanding all questions answered and signed consent. Urine test done in the office was negative The patient was placed into the dorsal lithotomy position; a speculum was inserted in the vagina. Using aseptic technique for the procedure, the cervix was cleansed with Betadine. The anterior lip of the cervix was grasped with a single tooth tenaculum. The uterus was sounded to 7 cm with a 4 mm Pipelle was used. Tissues samples were obtained and placed in formalin, in a patient labeled container and sent to the pathology department. At the end of the procedure, there was minimal bleeding noted The patient tolerated the procedure well and was discharged in good condition with the following instructions: Nothing in the vagina until the bleeding stops. No sex until the bleeding stops, to call if any of the following occurs: fever (>100.4), flu-like symptoms, abdominal pain, heavy bleeding, four smelling vaginal discharge. The patient was instructed to schedule a Follow up appointment in 2 weeks to discuss pathology results of the biopsy and treatment options. This note was generated with a voice recognition program. Some errors may have been overlooked during the review of this note. Sometimes these errors may affect the content or meaning of a given sentence. [id number] Biopsy Results AMB Test Urine AMB Test Urine Negative Last Edit by Ninfa Young CMA on 02/19/25 12:53 Assessment & Plan Assessment & Plan (1) Abnormal uterine bleeding (AUB): Code(s): N93.9 - Abnormal uterine and vaginal bleeding, unspecified Category: Medical Plan: EMB done, see procedure note Orders: Orders AMB HCG Urine Test Today Z32.02 - Encounter for test, result negative AMB Endometrial Biopsy Today N93.9 - Abnormal uterine and vaginal bleeding, unspecified Coding Level of Care Code Procedure Only Diagnoses Abnormal uterine bleeding (AUB) N93.9 CPT Codes Endometrial Biopsy - CPT: 51919-[id number] Biopsy ([id number])
--- OUTSIDE RECORDS SUMMARY | 2025-02-19 15:02 | XMS_ITS | Clinical Summary ---
Author Organization [facility] Address [address] [place] [address] [place] [phone] Phone Care Team Providers Care Supervisor Public Health Nursing Name Role Phone Masha Bain MD Primary [...] - 01/10/2025 11:59 PM EDT Hospital Encounter [facility] [address] [place] [address] Tawny Blue PA-C Discharge Disposition: Home or Self Care 01/09/2025 9:28 PM EDT - 01/10/2025 12:41 AM EDT Emergency [facility] [address] [place] [address] Discharge Disposition: Home or Self Care from [...] 2023 INFLUENZA VACCINE (#1) 2024 COVID-19 VACCINE ( - 2024-2 6 season) 2025 SCREENING FOR DIABETES 01/10/2028 01/09/2025 [...] due to blood products. 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 Of note,the fairground operator noted a moderate amount of blood upon [...] clinician's provided indication for this examination in [facility]: Pain COMPARISON: None available. FINDINGS: Lumbar spine: Normal alignment. Normal vertebral body heights. Normal intervertebral disc spaces. Intact sacroiliac joints. No sacroiliitis. Sacrum and coccyx: No displaced fracture. Procedure Note Cleveland Garcia MBBS - 01/09/2025 XR LUMBOSACRAL SPINE 2-3 VIEWS, XR SACRUM AND COCCYX Referring clinician's provided indication for this examination in [facility]:Pain COMPARISON: None available. FINDINGS: Lumbar spine: [...] clinician's provided indication for this examination in [facility]: Pain COMPARISON: None available. FINDINGS: Lumbar spine: Normal alignment. Normal vertebral body heights. Normal intervertebral disc spaces. Intact sacroiliac joints. No sacroiliitis. Sacrum and coccyx: No displaced fracture. Procedure Note Cleveland Garcia MBBS - 01/09/2025 XR LUMBOSACRAL SPINE 2-3 VIEWS, XR SACRUM AND COCCYX Referring clinician's provided indication for this examination in [facility]:Pain COMPARISON: None available. FINDINGS: Lumbar spine: Normal alignment. Normal vertebral body heights. Normalintervertebral disc spaces. Intact sacroiliac joints. No sacroiliitis. Sacrum and coccyx: No displaced fracture. IMPRESSION: No displaced fracture. Tawny MARMOLEJO-C IMG XR SPINE Final Resul t * HCG, serum qualitative (01/09/2025 4:55 PM EDT) HCG, QUALITATIVE Negative Negative IU/L [facility] Blood 01/09/2025 4:55 PM EDT 01/09/2025 5:56 PM EDT us Ganesh Najera MD LAB BLOOD ORDERAB LES Final Result [facility] [address] [place] [address] * CBC and differential (01/09/2025 4:55 PM EDT) Pathologist [facility] WBC 5.20 4.00 - 11.00 K/uL [facility] RBC 4.36 4.00 - 5.20 M/uL [facility] HGB 13.2 12.0 - 16.0 g/dL [facility] HCT 39.1 36.0 - 46.0 % [facility] PLT 217 150 - 450 K/uL [facility] MCV 89.7 80.0 - 100.0 fL [facility] MCH 30.3 27.0 - 31.0 pg [facility] MCHC 33.8 32.0 - 36.0 g/dL [facility] RDW 12.6 11.5 - 14.5 % [facility] MPV 11.5 8.4 - 12.0 fL [facility] NRBC 0.00 0.00 /100 WBCs [facility] ABSOLUTE NRBC 0.00 0.00 K/uL [facility] DIFF METHOD Auto [facility] NEUTS 62.5 48.0 - 76.0 % [facility] LYMPHS 28.5 18.0 - 41.0 % [facility] MONOS 6.3 4.0 - 11.0 % [facility] EOS 1.5 0.0 - 5.0 % [facility] BASOS 1.0 0.0 - 1.5 % [facility] Granulocytes, immature (%) 0.2 0.0 - 0.9 % [facility] ABSOLUTE NEUTS 3.25 1.92 - 7.60 K/uL [facility] ABSOLUTE LYMPHS 1.48 0.72 - 4.10 K/uL [facility] ABSOLUTE MONOS 0.33 0.16 - 1.10 K/uL [facility] ABSOLUTE EOS 0.08 0.00 - 0.50 K/uL [facility] ABSOLUTE BASOS 0.05 0.00 - 0.15 K/uL [facility] Granulocytes, immature 0.01 0.00 - 0.09 K/uL [facility] Blood 01/09/2025 4:55 PM EDT 01/09/2025 5:56 PM EDT us Ganesh Najera MD LAB BLOOD ORDERAB LES Final Result Performing Organization Address City/[facility]/ZIP Co de Phone Number [address] [address] * (ABNORMAL) Basic metabolic panel (01/09/2025 4:55 PM EDT) SODIUM 140 133 - 146 mmol/L [facility] CHLORIDE 103 96 - 108 mmol/L [facility] POTASSIUM 4.4 3.3 - 5.1 mmol/L [facility] Comment:Specimen slightly he molyzed, result may be falsely elevated. CO2 27 21 - 35 mmol/L [facility] BUN 24(H) 6 - 19 mg/dL [facility] CREATININE 0.70 0.5 - 1.5 mg/dL [facility] GLUCOSE 88 70 - 99 mg/dL [facility] CALCIUM 9.4 8.4 - 10.3 mg/dL [facility] EGFR 108 >59 mL/min/1.7 3m2 [facility] Comment:Estimated glomerular filtration rate calculated using the CKD-EPI refit equation. ANION GAP 14 10 - 20 mmol/L [facility] Blood 01/09/2025 4:55 PM EDT 01/09/2025 5:56 PM EDT us Ganesh Najera MD LAB BLOOD ORDERAB LES Final Result Performing Organization Address [facility]/ZIP Co de Phone Number [address] [address] * (ABNORMAL) Urinalysis w/reflex Urine Culture (01/09/2025 4:39 PM EDT) COLOR Yellow Yellow [facility] CLARITY Clear [facility] GLUCOSE Negative Negative [facility] BILI Negative Negative [facility] KETONES Negative Negative [facility] SPECIFIC GRAVITY 1.015 1.005 - 1.030 [facility] BLOOD 3+(A) Negative [facility] PH 7.0 5.0 - 8.0 [facility] Protein-UA Negative Negative [facility] NITRITE Negative Negative [facility] Leukocyte esterase, ur Negative Negative [facility] Urine (Urine) 01/09/2025 4:3 9 PM EDT 01/09/2025 5:45 PM EDT Ganesh Najera MD URINE ORDERABLES Final Result Performing Organization Address [facility] [[email or web address]] Co de Phone Number [address] [address] * (ABNORMAL) Urine sediment (01/09/2025 4:39 PM EDT) WBC 0-4(A) NONE SEEN /hpf [facility] RBC 6-10(A) NONE SEEN /hpf [facility] URINE EPITHELIAL 0-4(A) NONE SEEN [facility] MUCUS Trace(A) NONE SEEN /hpf [facility] BACTERIA Trace(A) NONE SEEN /hpf [facility] CRYSTALS 1+ [facility] Comment:AMORPHOUS 01/09/2025 4:39 PM EDT 01/09/2025 5:45 PM EDT us Ganesh Najera MD URINE ORDERABLES Final Result Performing Organization Address [facility]/ZIP Co de Phone Number [address] [address] * ECG 12-LEAD (01/09/2025 4:36 PM EDT) Ventricular Rate EKG/MIN 82 BPM [facility] Atrial Rate 82 BPM [facility] ID Interval 150 ms [facility] QRS Duration 68 ms [facility] QT Interval 370 ms [facility] QTC Interval 432 ms [facility] P [place] 47 degrees [facility] R Wave [place] 13 degrees [facility] T Wave [place] 42 degrees [facility] 01/09/2025 4:36 PM EDT 01/10/2025 1:54 PM EDT Narrative [facility] - 01/10/2025 1:54 PM EDT Normal sinus rhythm Low voltage QRS Borderline ECG When compared with ECG of 01-Apr-2023 22:55, No significant change was found Confirmed by Bandar Milton ([id number]) on 01/10/2025 1:54:42 PM us Ganesh Najera MD ECG ORDERABLES F inal Result [facility] from Last 3 Months Insurance [facility] NON NSPG PCP [employer] [facility] NON NSPG PCP [place] [employer] NON NSPG PCP [employer] NON NSPG PCP S[employer] NON NSPG PCP [place] [employer] NON NSPG PCP [employer] Care Teams Supervisor Public Health Nursing Relationship Specialty Start Date End Date Masha Bain MD [address] [place] [address] PCP - General Internal Medicine 04/01/23 Additional Source Comments The information contained in this document represents components of the legal health record. It is not the complete legal health record.[facility]
== END 2025-02-19 13:06 | disposition home or self-care (01) ==
LOC: HO.HWS 12:36
PROVIDERS: PCP Internal Medicine; Visit Provider Obstetrics & Gynecology
DX: N93.9 Abnormal uterine and vaginal bleeding, unspecified (principal); Z32.02 Encounter for pregnancy test, result negative
CPT/HCPCS: 58100

== ENCOUNTER 2025-02-19 12:36 | Outpatient (REF) | payer OTHER, SELFPAY | END 2025-02-19 12:37 | disposition home or self-care (01) | LOC: HO.LNP 12:36 | PROVIDERS: PCP Internal Medicine; Visit Provider Obstetrics & Gynecology | DX: N93.9 Abnormal uterine and vaginal bleeding, unspecified (principal); Z32.02 Encounter for pregnancy test, result negative | CPT/HCPCS: 58100; 81025; 88305 ==

== ENCOUNTER 2025-03-09 18:34 | Emergency (ER) | payer OTHER, SELFPAY ==
[2025-03-09 18:40] VITALS: BP 144/72; PULSE 99; RESP 20; TEMP 37.1; O2SAT 98; BMI 26.0
--- NOTE | 2025-03-09 18:52 | ED.NAVMDI ---
HPI - Nausea/Vomiting/Diarrhea General Chief complaint: Nausea/Vomiting/Diarrhea Stated complaint: Diarrhea Time Seen by Provider: 03/09/25 20:38 Source: patient Mode of arrival: ambulatory Limitations: no limitations History of Present Illness ED Provider: Kristopher MARMOLEJO HPI Narrative: The patient is a 45-year-old female presenting to the ED for evaluation of diarrhea with the abdominal cramping. Patient reports since Wednesday she has been experiencing multiple episodes of watery brownish yellow diarrhea, without associated hematochezia, melena, vomiting, fever/chills, abdominal pain, dysuria, hematuria, or recent sick contacts. The patient reports she adhere to a clear liquid and crack her diet, and on Wednesday she took Imodium and symptoms began to improve. Patient reports however yesterday she began to advance her diet and symptoms returned with generalized cramping/borborygmi, and 1 episode of similar diarrhea. Patient reports the cramping and borborygmi continued today and today she has experienced 3 episodes of diarrhea. The patient denies any surgical abdominal history. Related Data Home Medications ?Medication ?Instructions ?Recorded ?Confirmed meloxicam 15 mg tablet 15 mg PO DAILY 06/10/21 04/06/23 duloxetine 20 mg capsule,delayed 20 mg PO DAILY 07/24/22 04/06/23 release cetirizine 10 mg tablet (Zyrtec) 10 mg PO DAILY PRN 09/21/22 04/06/23 Previous Rx's ?Medication ?Instructions ?Recorded albuterol sulfate 90 mcg/actuation 2 inh inhalation Q6H PRN shortness 09/21/22 aerosol inhaler of breath or wheezing 30 days #18 grams cyclobenzaprine 5 mg tablet 5 mg PO ONCE muscle spasm 3 days 01/15/25 #3 tabs nitrofurantoin 100 mg PO BID 5 days #10 caps 02/06/25 monohydrate/macrocrystals 100 mg capsule (Macrobid) terconazole 0.8 % vaginal cream 1 appful vaginal BEDTIME 3 days 02/12/25 #20 grams Allergies Allergy/AdvReac Type Severity Reaction Status Date / Time seasonal allergies Allergy Mild Itchy Eyes Uncoded 03/09/25 18:40 Review of Systems Review of Systems: Yes all other systems are reviewed and are negative PMFSH Past Medical History Medical History Costochondritis Chest pain Chest crackles Joint pain Fibromyalgia Asthma Rash XIOMY (generalized anxiety disorder) Physical exam Hair loss Fibromyalgia Surgical History History of cholecystectomy History of Family History Family History Mother No problems noted. 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 Vital signs as documented. HEAD: Atraumatic, normocephalic. EYES: EOMs grossly intact, pupils equal, conjunctiva clear, no exudate. ENT: Nares patent, no discharge. Airway patent, no audible stridor, visible mucosa is pink and moist without noted lesions. NECK: Trachea is midline, no obvious masses or gross abnormalities. CHEST: Symmetric movement, normal appearance. LUNGS: LS present and CTAB, no w/r/r. Non-labored work of breathing. CARDIAC: Regular Rhythm, S1/S2 appreciated, no murmurs, rubs or gallops. ABDOMEN: Abdomen soft and non-tender x4 quadrants, no palpable masses or organomegaly. : Deferred. EXTREMITIES: Normal tone, moves all extremities spontaneously without reported pain. No obvious acute injury or deformity noted. NEURO: Alert and oriented x3, CN II-XII appear grossly intact. Cerebellar Functioning grossly intact. No obvious sensory or motor deficits. Speech clear and appropriate. PSYCH: normal affect, appropriate eye contact, fluid speech, with appropriate response to questioning. No reported suicidality or homicidality. SKIN: Warm, dry, color appropriate, normal turgor. No rashes noted. 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 Deferred additionl HPI, ROS, PE to primary provider. 45 yo female here intermittent diarrhea since Wednesday, had abdominal pain now resolved. Will obtain labs, GI panel, UA VSS Medical Decision Making Medical Decision Making [facility] Narrative: 9:35 PM 03/09/2025 (Chang MARMOLEJO): The patient is a 45-year-old female presenting to the ED for evaluation of diarrhea with the abdominal cramping. Patient reports since Wednesday she has been experiencing multiple episodes of watery brownish yellow diarrhea, without associated hematochezia, melena, vomiting, fever/chills, abdominal pain, dysuria, hematuria, or recent sick contacts. The patient reports she adhere to a clear liquid and crack her diet, and on Wednesday she took Imodium and symptoms began to improve. Patient reports however yesterday she began to advance her diet and symptoms returned with generalized cramping/borborygmi, and 1 episode of similar diarrhea. Patient reports the cramping and borborygmi continued today and today she has experienced 3 episodes of diarrhea. The patient denies any surgical abdominal history. The patient in the ED is well-appearing, in no acute distress, vital signs are reassuring, no hypotension, tachycardia, or tachypnea. The patient's abdominal exam is benign, no point tenderness. No indication for CT imaging at this time. The patient's laboratory evaluation is reassuring, no leukocytosis, anemia, electrolyte abnormality, or JAGUAR. The patient's urinalysis is negative for infection or hematuria. The patient is likely suffering from viral diarrhea. Patient has been educated to avoid additional Imodium to reduce duration of symptoms, additionally we will treat with Tylenol for inflammation. Patient takes daily Celebrex, we will forego ibuprofen. Admission/Observation Consideration of admission/observation: Escalation of care including admission/observation considered Lab Data [facility] Lab Attestation statement: I reviewed the patient's lab results. 03/09/25 19:08 03/09/25 19:08 Labs: Lab Results 03/09/25 03/09/25 Range/Units 19:08 20:27 WBC 8.0 (4.8-10.8) X10*3/uL RBC 4.55 (4.20-5.50) X10*6/uL Hgb 13.4 (12.0-16.0) g/dl Hct 39.5 (37.0-47.0) % MCV 86.8 (80.0-98.0) fL MCH 29.5 (27.0-33.0) pg MCHC 33.9 (31.0-35.0) g/dl RDW 12.4 (11.0-16.0) % Plt Count 195 (160-400) X10*3/uL MPV 11.0 (9.4-12.3) fL Immature Gran % (Auto) 0.2 (0.0-0.4) % Neut % (Auto) 47.6 (45-73) % Lymph % (Auto) 21.0 (20-40) % [place] % (Auto) 4.7 (2-11) % Eos % (Auto) 24.9 H (0-4) % Baso % (Auto) 1.6 (0-2) % Lymph # (Auto) 1.7 (1.2-4.9) X10*3/uL [place] # (Auto) 0.4 (0.1-1.2) X10*3/uL Eos # (Auto) 2.0 H (0.0-0.4) X10*3/uL Baso # (Auto) 0.1 (0.0-0.2) X10*3/uL Abs Immat Gran (auto) 0.02 (0.00-0.03) X10*3/uL Absolute Neuts (auto) 3.8 (2.0-8.3) x10*3/uL Absolute Nucleated RBC 0.000 (0.0-0.012) X10*3/uL Nucleated RBC % (auto) 0.0 (0.0-0.2) /100WBC Smear Tech's Comments VERIFIED Sodium 141 (135-145) mmol/L Potassium 3.8 (3.3-5.1) mmol/L Chloride 105 (96-108) mmol/L Carbon Dioxide 28 (22-29) mmol/L Anion Gap 12 (12-20) BUN 11 (9-16) mg/dL Creatinine 0.66 (0.5-1.4) mg/dL Estim Creat Clear Calc 104.0 Estimated GFR > 60 Random Glucose 94 (60-115) mg/dL Calcium 9.0 (8.4-10.2) mg/dL Magnesium 1.8 (1.6-2.6) mg/dL Total Bilirubin 0.2 (0.0-1.0) mg/dL Direct Bilirubin < 0.2 (0.0-0.5) mg/dL AST 60 H (5-31) U/L ALT 51 H (0-31) U/L Alkaline Phosphatase 108 (39-117) U/L Total Protein 6.9 (6.5-8.0) g/dL Albumin 4.2 (3.5-5.0) g/dL Urine Color Yellow Urine Appearance Clear Urine pH 8.0 (5.0-9.0) Ur Specific [place] 1.010 (1.005-1.025) Urine Protein Negative (Neg-Trace) mg/dL Urine Glucose (UA) Negative (Negative) mg/dL Urine Ketones Negative (Negative) mg/dL Urine Blood Negative (Negative) Urine Nitrite Negative (Negative) Ur Leukocyte Esterase Small (1+) H (Negative) Urine RBC 0-2 (0-2) /HPF Urine WBC 0-5 (0-5) /HPF Ur Squamous Epith Cells 0-2 (0-2) /HPF Urine Bacteria None Seen (None Seen) Hyaline Casts 0-2 (0-2) /LPF Prescription Management I considered prescription management with: Pain Medication and Antibiotic Discharge Plan Discharge Clinical Impression: Viral diarrhea Patient Disposition: Home, Self-Care Instructions: Acute Diarrhea (ED), Enteritis (ED), Clear Liquid Diet (ED) Additional Instructions: Thank you for choosing [facility]'s Emergency Department for your care today. Thankfully your laboratory evaluation is reassuring and shows no evidence of infectious process, dehydration, electrolyte abnormality, or other acute finding. At this time there is no indication for admission to the hospital or continued ED observation, and it is safe to discharge you home. Your presentation of symptoms is consistent with viral diarrhea. There was no indication for antibiotics, and your symptoms should begin to improve in the next 3-5 days. Please avoid taking any additional Imodium as preventing viral diarrhea from passing can keep the virus in your gastrointestinal system longer, producing a longer overall duration of your symptoms. Instead please focus on staying well hydrated with a bland diet, and getting plenty of rest. You should take Tylenol 1000mg every 6 hours to reduce inflammation of your intestine which should improve symptoms. Please follow up with your primary care physician for re-evaluation, additional management of your symptoms, and continued preventative care. If you do not have a primary care physician, please call the [facility] at [phone] to establish a new primary care physician. While waiting to establish your new primary care physician, you can call our Walk-in Care [facility] at [phone] for non-emergency needs. Please return to the emergency department if you develop a severe or sudden change in your symptoms, a fever over 100.4 that does not improve with Tylenol or Ibuprofen, recurrent vomiting, or any other new or worsening symptoms or concerns. Prescriptions: No Action cyclobenzaprine 5 mg tablet 5 mg PO ONCE 3 Days Qty: 3 0RF terconazole 0.8 % cream 1 appful vaginal BEDTIME 3 Days Qty: 20 0RF meloxicam 15 mg tablet 15 mg PO DAILY duloxetine 20 mg capsule,delayed release(DR/EC) 20 mg PO DAILY cetirizine [Zyrtec] 10 mg tablet 10 mg PO DAILY PRN albuterol sulfate 90 mcg/actuation HFA aerosol inhaler 2 inh inhalation Q6H PRN (Reason: shortness of breath or wheezing) 30 Days Qty: 18 12RF nitrofurantoin monohyd/m-cryst [Macrobid] 100 mg capsule 100 mg PO BID 5 Days Qty: 10 0RF Referrals: Masha Bain MD [Primary Care Provider, Internal Medicine] Clinical Impression: Viral diarrhea Print Language: Mozambican
[2025-03-09 19:19] LABS: Hematocrit 39.5 % (37.0-47.0); Hemoglobin 13.4 g/dl (12.0-16.0); Imm Gran Abs Auto 0.02 X10*3/uL (0.00-0.03); Imm Gran Pct Auto 0.2 % (0.0-0.4); Lymphocytes Absolute Auto 1.7 X10*3/uL (1.2-4.9); MANUAL DIFF FLAG SCAN; Mean Corpuscular HGB Conc 33.9 g/dl (31.0-35.0); Mean Corpuscular Hemoglobin 29.5 pg (27.0-33.0); Mean Corpuscular Volume 86.8 fL (80.0-98.0); NRBC Abs Auto 0.000 X10*3/uL (0.0-0.012); NRBC Pct Auto 0.0 /100WBC (0.0-0.2); Platelet Count 195 X10*3/uL (160-400); Red Blood Count 4.55 X10*6/uL (4.20-5.50); SCAN SMEAR FLAG 1; White Blood Count 8.0 X10*3/uL (4.8-10.8)
[2025-03-09 19:32] LABS: Alanine Aminotransferase 51 U/L (0-31); Albumin Level 4.2 g/dL (3.5-5.0); Alkaline Phosphatase 108 U/L (39-117); Anion Gap 12 (12-20); Aspartate Amino Transferase 60 U/L (5-31); Blood Urea Nitrogen 11 mg/dL (9-16); Calcium 9.0 mg/dL (8.4-10.2); Carbon Dioxide 28 mmol/L (22-29); Chloride 105 mmol/L (96-108); Creatinine Clr Calc Pharmacy 104.0; Estimated Glomerular Filt Rate > 60; Magnesium 1.8 mg/dL (1.6-2.6); Potassium 3.8 mmol/L (3.3-5.1); Sodium 141 mmol/L (135-145); Total Protein 6.9 g/dL (6.5-8.0)
--- OUTSIDE RECORDS SUMMARY | 2025-03-09 19:34 | XMS_ITS | Clinical Summary ---
Author Organization [facility] Address [address] [place] [address] [place] [id number] Phone Care Team Providers Care Professor Of Political Science Name Role Phone Masha Bain MD Primary [...] 01/10/2025 11:59 PM EDT Hospital Encounter [facility] [address] [place] [address] Tawny Blue PA-C Discharge Disposition: Home or Self Care 01/09/2025 9:28 PM EDT - 01/10/2025 12:41 AM EDT Emergency [facility] [address] [place] [address] Discharge Disposition: Home or Self Care from [...] due to blood products. Of note, the evaluation assistant noted a moderate amount of blood upon [...] be due to blood products. Of note,the evaluation assistant noted a moderate amount of blood upon [...] clinician's provided indication for this examination in [facility]: Pain COMPARISON: None available. FINDINGS: Lumbar spine: Normal alignment. Normal vertebral body heights. Normal intervertebral disc spaces. Intact sacroiliac joints. No sacroiliitis. Sacrum and coccyx: No displaced fracture. Procedure Note Cleveland Garcia MBBS - 01/09/2025 XR LUMBOSACRAL SPINE 2-3 VIEWS, XR SACRUM AND COCCYX Referring clinician's provided indication for this examination in [facility]:Pain COMPARISON: None available. FINDINGS: Lumbar spine: [...] clinician's provided indication for this examination in [facility]: Pain COMPARISON: None available. FINDINGS: Lumbar spine: Normal alignment. Normal vertebral body heights. Normal intervertebral disc spaces. Intact sacroiliac joints. No sacroiliitis. Sacrum and coccyx: No displaced fracture. Procedure Note Cleveland Garcia MBBS - 01/09/2025 XR LUMBOSACRAL SPINE 2-3 VIEWS, XR SACRUM AND COCCYX Referring clinician's provided indication for this examination in [facility]:Pain COMPARISON: None available. FINDINGS: Lumbar spine: Normal alignment. Normal vertebral body heights. Normalintervertebral disc spaces. Intact sacroiliac joints. No sacroiliitis. Sacrum and coccyx: No displaced fracture. IMPRESSION: No displaced fracture. Tawny MARMOLEJO-C IMG XR SPINE Final Resul t * HCG, serum qualitative (01/09/2025 4:55 PM EDT) HCG, QUALITATIVE Negative Negative IU/L [facility] Blood 01/09/2025 4:55 PM EDT 01/09/2025 5:56 PM EDT us Ganesh Najera MD LAB BLOOD ORDERAB LES Final Result [facility] [address] [place] [address] * CBC and differential (01/09/2025 4:55 PM EDT) Pathologist [facility] WBC 5.20 4.00 - 11.00 K/uL [facility] RBC 4.36 4.00 - 5.20 M/uL [facility] HGB 13.2 12.0 - 16.0 g/dL [facility] HCT 39.1 36.0 - 46.0 % [facility] PLT 217 150 - 450 K/uL [facility] MCV 89.7 80.0 - 100.0 fL [facility] MCH 30.3 27.0 - 31.0 pg [facility] MCHC 33.8 32.0 - 36.0 g/dL [facility] RDW 12.6 11.5 - 14.5 % [facility] MPV 11.5 8.4 - 12.0 fL [facility] NRBC 0.00 0.00 /100 WBCs [facility] ABSOLUTE NRBC 0.00 0.00 K/uL [facility] DIFF METHOD Auto [facility] NEUTS 62.5 48.0 - 76.0 % [facility] LYMPHS 28.5 18.0 - 41.0 % [facility] MONOS 6.3 4.0 - 11.0 % [facility] EOS 1.5 0.0 - 5.0 % [facility] BASOS 1.0 0.0 - 1.5 % [facility] Granulocytes, immature (%) 0.2 0.0 - 0.9 % [facility] ABSOLUTE NEUTS 3.25 1.92 - 7.60 K/uL [facility] ABSOLUTE LYMPHS 1.48 0.72 - 4.10 K/uL [facility] ABSOLUTE MONOS 0.33 0.16 - 1.10 K/uL [facility] ABSOLUTE EOS 0.08 0.00 - 0.50 K/uL [facility] ABSOLUTE BASOS 0.05 0.00 - 0.15 K/uL [facility] Granulocytes, immature 0.01 0.00 - 0.09 K/uL [facility] Blood 01/09/2025 4:55 PM EDT 01/09/2025 5:56 PM EDT us Ganesh Najera MD LAB BLOOD ORDERAB LES Final Result Performing Organization Address City/[facility]/ZIP Co de Phone Number [address] [address] * (ABNORMAL) Basic metabolic panel (01/09/2025 4:55 PM EDT) SODIUM 140 133 - 146 mmol/L [facility] CHLORIDE 103 96 - 108 mmol/L [facility] POTASSIUM 4.4 3.3 - 5.1 mmol/L [facility] Comment:Specimen slightly he molyzed, result may be falsely elevated. CO2 27 21 - 35 mmol/L [facility] BUN 24(H) 6 - 19 mg/dL [facility] CREATININE 0.70 0.5 - 1.5 mg/dL [facility] GLUCOSE 88 70 - 99 mg/dL [facility] CALCIUM 9.4 8.4 - 10.3 mg/dL [facility] EGFR 108 >59 mL/min/1.7 3m2 [facility] Comment:Estimated glomerular filtration rate calculated using the CKD-EPI refit equation. ANION GAP 14 10 - 20 mmol/L [facility] Blood 01/09/2025 4:55 PM EDT 01/09/2025 5:56 PM EDT us Ganesh Najera MD LAB BLOOD ORDERAB LES Final Result Performing Organization Address [facility]/ZIP Co de Phone Number [address] [address] * (ABNORMAL) Urinalysis w/reflex Urine Culture (01/09/2025 4:39 PM EDT) COLOR Yellow Yellow [facility] CLARITY Clear [facility] GLUCOSE Negative Negative [facility] BILI Negative Negative [facility] KETONES Negative Negative [facility] SPECIFIC GRAVITY 1.015 1.005 - 1.030 [facility] BLOOD 3+(A) Negative [facility] PH 7.0 5.0 - 8.0 [facility] Protein-UA Negative Negative [facility] NITRITE Negative Negative [facility] Leukocyte esterase, ur Negative Negative [facility] Urine (Urine) 01/09/2025 4:3 9 PM EDT 01/09/2025 5:45 PM EDT Ganesh Najera MD URINE ORDERABLES Final Result Performing Organization Address [facility]/[place] Co de Phone Number [address] [address] * (ABNORMAL) Urine sediment (01/09/2025 4:39 PM EDT) WBC 0-4(A) NONE SEEN /hpf [facility] RBC 6-10(A) NONE SEEN /hpf [facility] URINE EPITHELIAL 0-4(A) NONE SEEN [facility] MUCUS Trace(A) NONE SEEN /hpf [facility] BACTERIA Trace(A) NONE SEEN /hpf [facility] CRYSTALS 1+ [facility] Comment:AMORPHOUS 01/09/2025 4:39 PM EDT 01/09/2025 5:45 PM EDT us Ganesh Najera MD URINE ORDERABLES Final Result Performing Organization Address [facility]/ZIP Co de Phone Number [address] [address] * ECG 12-LEAD (01/09/2025 4:36 PM EDT) Ventricular Rate EKG/MIN 82 BPM [facility] Atrial Rate 82 BPM [facility] NM Interval 150 ms [facility] QRS Duration 68 ms [facility] QT Interval 370 ms [facility] QTC Interval 432 ms [facility] P [place] 47 degrees [facility] R Wave [place] 13 degrees [facility] T Wave [place] 42 degrees [facility] 01/09/2025 4:36 PM EDT 01/10/2025 1:54 PM EDT Narrative [facility] - 01/10/2025 1:54 PM EDT Normal sinus rhythm Low voltage QRS Borderline ECG When compared with ECG of 01-Apr-2023 22:55, No significant change was found Confirmed by Bandar Milton ([id number]) on 01/10/2025 1:54:42 PM us Ganesh Najera MD ECG ORDERABLES F inal Result [facility] from Last 3 Months Insurance [facility] NON NSPG PCP S[place] [employer] [facility] NON NSPG PCP [place] [employer] NON NSPG PCP S[employer] NON NSPG PCP [employer] NON NSPG PCP [place] NON NSPG PCP BERT [place] CONNE[employer]CARE Care Teams Professor Of Political Science Relationship Specialty Start Date End Date Masha Bain MD [address] [place] [address] PCP - General Internal Medicine 04/01/23 Additional Source Comments The information contained in this document represents components of the legal health record. It is not the complete legal health record.[facility]
[2025-03-09 20:17] VITALS: BP 113/71; PULSE 91; RESP 18; O2SAT 97
--- NOTE | 2025-03-09 20:23 | MHC.EDTECH ---
Patient ambulated steady to the bathroom by herself. Urine specimen obtained
[2025-03-09 20:33] LABS: Appearance Urine Clear; Glucose Urine UA Negative (Negative); PH 8.0 (5.0-9.0); Specific Gravity - Urine 1.010 (1.005-1.025); UMIC TRIGGER UACC YES
[2025-03-09 20:48] LABS: UACC Culture Trigger YES
[2025-03-09 21:59] VITALS: BP 118/79; PULSE 74; RESP 16; TEMP 36.7; O2SAT 100
[2025-03-09 22:05] VITALS: BP 118/79; PULSE 74; RESP 16; TEMP 36.7; O2SAT 100
== END 2025-03-09 22:06 | disposition home or self-care (01) ==
PROVIDERS: Nurse Practitioner Family; Emergency Provider Emergency Medicine Emergency Medical Services; PCP Internal Medicine
DX: A08.4 Viral intestinal infection, unspecified (principal)
CPT/HCPCS: 36415; 80048; 80076; 81001; 83735; 85025; 87086; 99284

== ENCOUNTER 2025-03-15 10:55 | Outpatient (REF) | payer OTHER, SELFPAY ==
--- NOTE | ~2025-03-15 | US_ITS ---
CLINICAL HISTORY: N93.9 - Abnormal uterine and vaginal bleeding, unspecified US pelvis transvaginal and transabdominal Comparison: None provided Findings: Transvaginal and transabdominal scanning performed. Transvaginal scanning performed to better characterize the ovaries. Anteverted uterus is 8.2 cm length. Normal myometrium. No endometrial lesion, 9 mm thickness. Right ovary 6.0 x 2.7 x 3.4 cm. Left ovary 4.1 x 3.0 x 2.2 cm. Normal-appearing bilateral follicles. Normal color Doppler of both ovaries. No free fluid. IMPRESSION: 1. Normal pelvic ultrasound. This document has been electronically signed by: Susan Melgoza MD on 03/16/2025 09:11:05
--- OUTSIDE RECORDS SUMMARY | 2025-03-15 13:42 | XMS_ITS | Clinical Summary ---
Author Organization [facility] Address [address] [place] [address] [place] [address] Phone Care Team Providers Care Pug Mill Operator Helper Name Role Phone Masha Bain MD Primary [...] - 01/10/2025 11:59 PM EDT Hospital Encounter [facility] [address] [place] [address] Tawny Blue PA-C Discharge Disposition: Home or Self Care 01/09/2025 9:28 PM EDT - 01/10/2025 12:41 AM EDT Emergency [facility] [address] [place] [address] Discharge Disposition: Home or Self Care from [...] due to blood products. Of note, the hedge fund trader noted a moderate amount of blood upon [...] be due to blood products. Of note,the hedge fund trader noted a moderate amount of blood upon [...] clinician's provided indication for this examination in [facility]: Pain COMPARISON: None available. FINDINGS: Lumbar spine: Normal alignment. Normal vertebral body heights. Normal intervertebral disc spaces. Intact sacroiliac joints. No sacroiliitis. Sacrum and coccyx: No displaced fracture. Procedure Note Cleveland Garcia MBBS - 01/09/2025 XR LUMBOSACRAL SPINE 2-3 VIEWS, XR SACRUM AND COCCYX Referring clinician's provided indication for this examination in [facility]:Pain COMPARISON: None available. FINDINGS: Lumbar [...] clinician's provided indication for this examination in [facility]: Pain COMPARISON: None available. FINDINGS: Lumbar spine: Normal alignment. Normal vertebral body heights. Normal intervertebral disc spaces. Intact sacroiliac joints. No sacroiliitis. Sacrum and coccyx: No displaced fracture. Procedure Note Cleveland Garcia MBBS - 01/09/2025 XR LUMBOSACRAL SPINE 2-3 VIEWS, XR SACRUM AND COCCYX Referring clinician's provided indication for this examination in [facility]:Pain COMPARISON: None available. FINDINGS: Lumbar spine: Normal alignment. Normal vertebral body heights. Normalintervertebral disc spaces. Intact sacroiliac joints. No sacroiliitis. Sacrum and coccyx: No displaced fracture. IMPRESSION: No displaced fracture. Tawny MARMOLEJO-C IMG XR SPINE Final Resul t * HCG, serum qualitative (01/09/2025 4:55 PM EDT) HCG, QUALITATIVE Negative Negative IU/L [facility] Blood 01/09/2025 4:55 PM EDT 01/09/2025 5:56 PM EDT us Ganesh Najera MD LAB BLOOD ORDERAB LES Final Result [facility] [address] [place] [address] * CBC and differential (01/09/2025 4:55 PM EDT) Pathologist [facility] WBC 5.20 4.00 - 11.00 K/uL [facility] RBC 4.36 4.00 - 5.20 M/uL [facility] HGB 13.2 12.0 - 16.0 g/dL [facility] HCT 39.1 36.0 - 46.0 % [facility] PLT 217 150 - 450 K/uL [facility] MCV 89.7 80.0 - 100.0 fL [facility] MCH 30.3 27.0 - 31.0 pg [facility] MCHC 33.8 32.0 - 36.0 g/dL [facility] RDW 12.6 11.5 - 14.5 % [facility] MPV 11.5 8.4 - 12.0 fL [facility] NRBC 0.00 0.00 /100 WBCs [facility] ABSOLUTE NRBC 0.00 0.00 K/uL [facility] DIFF METHOD Auto [facility] NEUTS 62.5 48.0 - 76.0 % [facility] LYMPHS 28.5 18.0 - 41.0 % [facility] MONOS 6.3 4.0 - 11.0 % [facility] EOS 1.5 0.0 - 5.0 % [facility] BASOS 1.0 0.0 - 1.5 % [facility] Granulocytes, immature (%) 0.2 0.0 - 0.9 % [facility] ABSOLUTE NEUTS 3.25 1.92 - 7.60 K/uL [facility] ABSOLUTE LYMPHS 1.48 0.72 - 4.10 K/uL [facility] ABSOLUTE MONOS 0.33 0.16 - 1.10 K/uL [facility] ABSOLUTE EOS 0.08 0.00 - 0.50 K/uL [facility] ABSOLUTE BASOS 0.05 0.00 - 0.15 K/uL [facility] Granulocytes, immature 0.01 0.00 - 0.09 K/uL [facility] Blood 01/09/2025 4:55 PM EDT 01/09/2025 5:56 PM EDT us Ganesh Najera MD LAB BLOOD ORDERAB LES Final Result Performing Organization Address City/[facility]/ZIP Co de Phone Number [address] [address] * (ABNORMAL) Basic metabolic panel (01/09/2025 4:55 PM EDT) SODIUM 140 133 - 146 mmol/L [facility] CHLORIDE 103 96 - 108 mmol/L [facility] POTASSIUM 4.4 3.3 - 5.1 mmol/L [facility] Comment:Specimen slightly he molyzed, result may be falsely elevated. CO2 27 21 - 35 mmol/L [facility] BUN 24(H) 6 - 19 mg/dL [facility] CREATININE 0.70 0.5 - 1.5 mg/dL [facility] GLUCOSE 88 70 - 99 mg/dL [facility] CALCIUM 9.4 8.4 - 10.3 mg/dL [facility] EGFR 108 >59 mL/min/1.7 3m2 [facility] Comment:Estimated glomerular filtration rate calculated using the CKD-EPI refit equation. ANION GAP 14 10 - 20 mmol/L [facility] Blood 01/09/2025 4:55 PM EDT 01/09/2025 5:56 PM EDT us Ganesh Najera MD LAB BLOOD ORDERAB LES Final Result Performing Organization Address [facility]/ZIP Co de Phone Number [address] [address] * (ABNORMAL) Urinalysis w/reflex Urine Culture (01/09/2025 4:39 PM EDT) COLOR Yellow Yellow [facility] CLARITY Clear [facility] GLUCOSE Negative Negative [facility] BILI Negative Negative [facility] KETONES Negative Negative [facility] SPECIFIC GRAVITY 1.015 1.005 - 1.030 [facility] BLOOD 3+(A) Negative [facility] PH 7.0 5.0 - 8.0 [facility] Protein-UA Negative Negative [facility] NITRITE Negative Negative [facility] Leukocyte esterase, ur Negative Negative [facility] Urine (Urine) 01/09/2025 4:3 9 PM EDT 01/09/2025 5:45 PM EDT Ganesh Najera MD URINE ORDERABLES Final Result Performing Organization Address [facility] Co de Phone Number [address] [address] * (ABNORMAL) Urine sediment (01/09/2025 4:39 PM EDT) WBC 0-4(A) NONE SEEN /hpf [facility] RBC 6-10(A) NONE SEEN /hpf [facility] URINE EPITHELIAL 0-4(A) NONE SEEN [facility] MUCUS Trace(A) NONE SEEN /hpf [facility] BACTERIA Trace(A) NONE SEEN /hpf [facility] CRYSTALS 1+ [facility] Comment:AMORPHOUS 01/09/2025 4:39 PM EDT 01/09/2025 5:45 PM EDT us Ganesh Najera MD URINE ORDERABLES Final Result Performing Organization Address [facility]/ZIP Co de Phone Number [address] [address] * ECG 12-LEAD (01/09/2025 4:36 PM EDT) Ventricular Rate EKG/MIN 82 BPM [facility] Atrial Rate 82 BPM [facility] SC Interval 150 ms [facility] QRS Duration 68 ms [facility] QT Interval 370 ms [facility] QTC Interval 432 ms [facility] P [place] 47 degrees [facility] R Wave [place] 13 degrees [facility] T Wave [place] 42 degrees [facility] 01/09/2025 4:36 PM EDT 01/10/2025 1:54 PM EDT Narrative [facility] - 01/10/2025 1:54 PM EDT Normal sinus rhythm Low voltage QRS Borderline ECG When compared with ECG of 01-Apr-2023 22:55, No significant change was found Confirmed by Bandar Milton ([id number]) on 01/10/2025 1:54:42 PM us Ganesh Najera MD ECG ORDERABLES F inal Result [facility] from Last 3 Months Insurance [facility] NON NSPG PCP [employer] CONNE[employer] [facility] NON NSPG PCP [place] [employer] CONNE[employer] NON NSPG PCP SILVER [employer]ITY CONNECTORCARE [employer] NON NSPG PCP S[employer]VER [employer]ITY CONNECTORCARE [employer] NON NSPG PCP S[employer] CONNE[employer]CARE [employer] NON NSPG PCP [employer] Care Teams Pug Mill Operator Helper Relationship Specialty Start Date End Date Masha Bain MD [address] [place] [address] PCP - General Internal Medicine 04/01/23 Additional Source Comments The information contained in this document represents components of the legal health record. It is not the complete legal health record.[facility]
== END 2025-03-15 10:56 | disposition home or self-care (01) ==
LOC: HO.US 10:55
PROVIDERS: PCP Internal Medicine; Visit Provider Obstetrics & Gynecology
DX: N93.9 Abnormal uterine and vaginal bleeding, unspecified (principal)
CPT/HCPCS: 76830; 76856

== ENCOUNTER → 2025-03-15 10:56 | Outpatient (BNV) | payer OTHER, SELFPAY | PROVIDERS: PCP Internal Medicine; Visit Provider Radiology Diagnostic Radiology | DX: N93.9 Abnormal uterine and vaginal bleeding, unspecified (principal) | CPT/HCPCS: 76830; 76856 ==

== ENCOUNTER 2025-03-26 10:48 | Outpatient (AMB) | payer OTHER, SELFPAY ==
--- NOTE | 2025-03-26 11:18 | A.OFFVIS_ITS ---
Vital Signs 03/26/25 11:19 Height 5 ft 5 in Weight 156 lb BMI 26.0 Intake Visit Reasons: Ultrasound and EMB results Talent Acquisition Coordinator Required: Yes Talent Acquisition Coordinator Language: Phys Ther Services: Talent Acquisition Coordinator Present (in person) Talent Acquisition Coordinator Name: Ninfa SHAH Information Interpreted: non-clinical & clinical Accompanied by: Self / Same As Patient Allergies seasonal allergies Allergy (Mild, Uncoded 03/26/25 11:21) Itchy Eyes HPI Comments Details: The patient is presenting for follow-up to discuss the results of her abnormal uterine bleeding workup and options of treatment. The following workup was done.: H&H= 13.4/39.5 TSH, hCG, GC and chlamydia were negative. FSH/LH were elevated in menopausal range Endometrial biopsy pathology showed the following: Fragments of weakly proliferative endometrium with stromal and focal glandular breakdown; negative for atypia, hyperplasia or malignancy Co testing was done was negative. Mammogram was ordered but appointment missed Pelvic ultrasound showed the following: IMPRESSION: 1. Normal pelvic ultrasound. [facility] Medical History Costochondritis Chest pain Chest crackles Joint pain Fibromyalgia Asthma Rash XIOMY (generalized anxiety disorder) Physical exam Hair loss Fibromyalgia Surgical History History of cholecystectomy History of Family History Mother No problems noted. Father Hypertension Social History Household Members: Children Housing: House Alcohol intake: never Patient Tobacco Use Status: Never used Tobacco e-Cigarette/Vaping Use: Never Used Second Hand Smoke Exposure: No service: No Current occupational status: employed Current occupation: [employer] Current occupational exposures/hazards: No Cognitive needs: No Hearing needs: No Vision needs: No Female Reproductive History Menstrual Age of Menarche: 12 Review of Systems Const All systems reviewed & are unremarkable except as noted in HPI and below Reports as per HPI and Reports no additional complaints GI Reports no additional complaints Reports no additional complaints Physical Exam Vital Signs: BMI result Body Mass Index 26.0 Assessment & Plan Assessment & Plan (1) Abnormal uterine bleeding (AUB): Comment: Elevated FSH LH Code(s): N93.9 - Abnormal uterine and vaginal bleeding, unspecified Category: Medical Plan: Discussed with the patient the results of the work up done and options of treatment including but not limited to BCP's, cyclic Progesterone, Mirena IUD, endometrial ablation and hysterectomy. All pros, cons, risks and benefits of each option were discussed with the patient and the patient decided to go ahead with cyclic Provera, so a more detailed discussion re: Progesterone treatment including mechanism of action, benefits (regular menses, endometrial protection form unopposed estrogen and reduction in the risk of endometrial hyperplasia and/or cancer ...), risks (Thrombosis, mood changes, weight gain, breast soreness, ? increased breast ca, others). Instructions were given to use a back- up method for contraception since this is not a method control, to schedule mammogram and call will check the results if negative will prescribe Provera 10 mg p.o. q.d. day 15-24. Instructions given to the patient to take the medication 1 tablet daily starting day 15-24 and to schedule a 3 months follow-up appointment; patient verbalized understanding and agreed with the plan. Coding Level of Care Code Est Pt Level 3 (87892) Diagnoses Abnormal uterine bleeding (AUB) N93.9
[2025-03-26 11:19] VITALS: BMI 26.0
--- OUTSIDE RECORDS SUMMARY | 2025-03-26 12:50 | XMS_ITS | Clinical Summary ---
Author Organization [facility] Address [address] [place] [address] [place] [id number] Phone Care Team Providers Care Director [place] Name Role Phone Masha Bain MD Primary [...] - 01/10/2025 11:59 PM EDT Hospital Encounter [facility] [address] [place] [address] Tawny Blue PA-C Discharge Disposition: Home or Self Care 01/09/2025 9:28 PM EDT - 01/10/2025 12:41 AM EDT Emergency [facility] [address] [place] [address] Discharge Disposition: Home or Self Care from [...] STAT 4:55 PM EDT BASIC METABOLIC PANEL (BMP) STAT 01/09/2025 4:55 PM EDT CBC AND DIFFERENTIAL STAT 01/09/2025 4:55 PM EDT URINE SEDIMENT STAT 01/09/2025 4:39 PM EDT URINALYSIS WITH REFLEX TO URINE CULTURE STAT 01/09/2025 4:39 PM EDT [...] due to blood products. Of note, the criminology teacher noted a moderate amount of blood upon [...] be due to blood products. Of note,the criminology teacher noted a moderate amount of blood upon [...] clinician's provided indication for this examination in [facility]: Pain COMPARISON: None available. FINDINGS: Lumbar spine: Normal alignment. Normal vertebral body heights. Normal intervertebral disc spaces. Intact sacroiliac joints. No sacroiliitis. Sacrum and coccyx: No displaced fracture. Procedure Note Cleveland Garcia MBBS - 01/09/2025 XR LUMBOSACRAL SPINE 2-3 VIEWS, XR SACRUM AND COCCYX Referring clinician's provided indication for this examination in [facility]:Pain COMPARISON: None available. FINDINGS: Lumbar spine: Normal [...] clinician's provided indication for this examination in [facility]: Pain COMPARISON: None available. FINDINGS: Lumbar spine: Normal alignment. Normal vertebral body heights. Normal intervertebral disc spaces. Intact sacroiliac joints. No sacroiliitis. Sacrum and coccyx: No displaced fracture. Procedure Note Cleveland Garcia MBBS - 01/09/2025 XR LUMBOSACRAL SPINE 2-3 VIEWS, XR SACRUM AND COCCYX Referring clinician's provided indication for this examination in [facility]:Pain COMPARISON: None available. FINDINGS: Lumbar spine: Normal alignment. Normal vertebral body heights. Normalintervertebral disc spaces. Intact sacroiliac joints. No sacroiliitis. Sacrum and coccyx: No displaced fracture. IMPRESSION: No displaced fracture. Tawny MARMOLEJO-C IMG XR SPINE Final Resul t * HCG, serum qualitative (01/09/2025 4:55 PM EDT) HCG, QUALITATIVE Negative Negative IU/L [facility] Blood 01/09/2025 4:55 PM EDT 01/09/2025 5:56 PM EDT Ganesh Najera MD LAB BLOOD BKR ORD ERABLES Final Result [facility] [address] [place] [address] * CBC and differential (01/09/2025 4:55 PM EDT) WBC 5.20 4.00 - 11.00 K/uL [facility] RBC 4.36 4.00 - 5.20 M/uL [facility] HGB 13.2 12.0 - 16.0 g/dL [facility] HCT 39.1 36.0 - 46.0 % [facility] PLT 217 150 - 450 K/uL [facility] MCV 89.7 80.0 - 100.0 fL [facility] MCH 30.3 27.0 - 31.0 pg [facility] MCHC 33.8 32.0 - 36.0 g/dL [facility] RDW 12.6 11.5 - 14.5 % [facility] MPV 11.5 8.4 - 12.0 fL [facility] NRBC 0.00 0.00 /100 WBCs [facility] ABSOLUTE NRBC 0.00 0.00 K/uL [facility] DIFF METHOD Auto [facility] NEUTS 62.5 48.0 - 76.0 % [facility] LYMPHS 28.5 18.0 - 41.0 % [facility] MONOS 6.3 4.0 - 11.0 % [facility] EOS 1.5 0.0 - 5.0 % [facility] BASOS 1.0 0.0 - 1.5 % [facility] Granulocytes, immature (%) 0.2 0.0 - 0.9 % [facility] ABSOLUTE NEUTS 3.25 1.92 - 7.60 K/uL [facility] ABSOLUTE LYMPHS 1.48 0.72 - 4.10 K/uL [facility] ABSOLUTE MONOS 0.33 0.16 - 1.10 K/uL [facility] ABSOLUTE EOS 0.08 0.00 - 0.50 K/uL [facility] ABSOLUTE BASOS 0.05 0.00 - 0.15 K/uL [facility] Granulocytes, immature 0.01 0.00 - 0.09 K/uL [facility] Blood 01/09/2025 4:55 PM EDT 01/09/2025 5:56 PM EDT us Ganesh Najera MD LAB BLOOD BKR ORD ERABLES Final Result Performing Organization Address City/[facility]/ZIP Co de Phone Number [address] [address] * (ABNORMAL) Basic metabolic panel (01/09/2025 4:55 PM EDT) SODIUM 140 133 - 146 mmol/L [facility] CHLORIDE 103 96 - 108 mmol/L [facility] POTASSIUM 4.4 3.3 - 5.1 mmol/L [facility] Comment:Specimen slightly he molyzed, result may be falsely elevated. CO2 27 21 - 35 mmol/L [facility] BUN 24(H) 6 - 19 mg/dL [facility] CREATININE 0.70 0.5 - 1.5 mg/dL [facility] GLUCOSE 88 70 - 99 mg/dL [facility] CALCIUM 9.4 8.4 - 10.3 mg/dL [facility] EGFR 108 >59 mL/min/1.7 3m2 [facility] Comment:Estimated glomerular filtration rate calculated using the CKD-EPI refit equation. ANION GAP 14 10 - 20 mmol/L [facility] Blood 01/09/2025 4:55 PM EDT 01/09/2025 5:56 PM EDT us Ganesh Najera MD LAB BLOOD BKR ORD ERABLES Final Result Performing Organization Address City/[facility]/ZIP Co de Phone Number [address] [address] * (ABNORMAL) Urinalysis w/reflex Urine Culture (01/09/2025 4:39 PM EDT) COLOR Yellow Yellow [facility] CLARITY Clear [facility] GLUCOSE Negative Negative [facility] BILI Negative Negative [facility] KETONES Negative Negative [facility] SPECIFIC GRAVITY 1.015 1.005 - 1.030 [facility] BLOOD 3+(A) Negative [facility] PH 7.0 5.0 - 8.0 [facility] Protein-UA Negative Negative [facility] NITRITE Negative Negative [facility] Leukocyte esterase, ur Negative Negative [facility] Urine (Urine) 01/09/2025 4:3 9 PM EDT 01/09/2025 5:45 PM EDT us Ganesh Najera MD LAB URINE ORDERAB LES Final Result Performing Organization Address [facility]/ZIP Co de Phone Number [address] [address] * (ABNORMAL) Urine sediment (01/09/2025 4:39 PM EDT) WBC 0-4(A) NONE SEEN /hpf [facility] RBC 6-10(A) NONE SEEN /hpf [facility] URINE EPITHELIAL 0-4(A) NONE SEEN [facility] MUCUS Trace(A) NONE SEEN /hpf [facility] BACTERIA Trace(A) NONE SEEN /hpf [facility] CRYSTALS 1+ [facility] Comment:AMORPHOUS 01/09/2025 4:39 PM EDT 01/09/2025 5:45 PM EDT us Ganesh Najera MD LAB URINE ORDERAB LES Final Result Performing Organization Address City/[facility]/ZIP Co de Phone Number [address] [address] * ECG 12-LEAD (01/09/2025 4:36 PM EDT) Ventricular Rate EKG/MIN 82 BPM [facility] Atrial Rate 82 BPM [facility] [place] Interval 150 ms [facility] QRS Duration 68 ms [facility] QT Interval 370 ms [facility] QTC Interval 432 ms [facility] P [place] 47 degrees [facility] R Wave [place] 13 degrees [facility] T Wave [place] 42 degrees [facility] 01/09/2025 4:36 PM EDT 01/10/2025 1:54 PM EDT Narrative [facility] - 01/10/2025 1:54 PM EDT Normal sinus rhythm Low voltage QRS Borderline ECG When compared with ECG of 01-Apr-2023 22:55, No significant change was found Confirmed by Bandar Milton ([id number]) on 01/10/2025 1:54:42 PM us Ganesh Najera MD ECG ORDERABLES F inal Result [facility] from Last 3 Months Insurance [employer] NON NSPG PCP [employer] NON NSPG PCP [employer] [place] NON NSPG PCP S[employer]ARE [place] NON NSPG PCP [employer] CLARITY CONNECTORCARE [facility] NON NSPG PCP [employer] CONNE[employer]CARE [employer] NON NSPG PCP [employer] Care Teams Director [place] Relationship Specialty Start Date End Date Masha Bain MD [address] [place] [address] PCP - General Internal Medicine 04/01/23 Additional Source Comments The information contained in this document represents components of the legal health record. It is not the complete legal health record.[facility]
== END 2025-03-26 11:42 | disposition home or self-care (01) ==
LOC: HO.HWS 10:48
PROVIDERS: PCP Internal Medicine; Visit Provider Obstetrics & Gynecology
DX: N93.9 Abnormal uterine and vaginal bleeding, unspecified (principal)
CPT/HCPCS: 99213

== ENCOUNTER → 2025-03-26 10:48 | Outpatient (BNVA) | payer OTHER, SELFPAY | PROVIDERS: PCP Internal Medicine; Visit Provider Obstetrics & Gynecology | DX: N93.9 Abnormal uterine and vaginal bleeding, unspecified (principal); Z98.890 Other specified postprocedural states | CPT/HCPCS: 99212 ==

== ENCOUNTER 2025-03-27 15:06 | Outpatient (AMB) | payer OTHER, SELFPAY ==
--- NOTE | 2025-03-27 15:12 | A.OFFPC_ITS ---
Vital Signs 03/27/25 15:13 Height 5 ft 5 in Weight 156 lb 2 oz BMI 26.0 BP 110/80 Blood Pressure Location Lt brachial Position Sitting Respiration 18 Pulse 95 Pulse Source Pulse Oximeter Temp Source Temporal Artery Scan Pulse Oximetry (%) 96 Oxygen Delivery Method Room Air Intake Visit Reasons: annual physical Inclusion Special Educator Required: No Accompanied by: Self / Same As Patient Allergies seasonal allergies Allergy (Mild, Uncoded 03/27/25 15:34) Itchy Eyes Medication List - Last Reconciled 03/27/25 by Masha Delacruz MD albuterol sulfate 90 mcg/actuation 2 inhalations inhalation Q6H PRN 30 days celecoxib (Celebrex) 200 mg PO DAILY cetirizine (Zyrtec) 10 mg PO DAILY PRN cyclobenzaprine 5 mg PO ONCE 3 days duloxetine 20 mg PO DAILY Tobacco use date assessed: 03/27/25 Dental Screening Dental Screen Date: 03/27/25 Did you have a dental visit in the last 12 months?: No Did you have a dental problem in the last 6 months where you did not have access to dental care?: No Was dental information given to patient?: No HPI HPI Comments History of Present Illness Details The patient is a 45-year-old female presenting for her physical exam and to discuss recent lab results and to request a referral for a second opinion regarding her gynecological health. The patient recently underwent a breast sonogram and biopsy for a bruise, with results reported as normal. She expresses dissatisfaction with the previous provider, who proposed treatment with an unspecified pill for 10 days during her menstrual cycle without a clear explanation. She is requesting a referral for a second opinion for her gynecological care. Recent lab work revealed slightly elevated liver enzymes. Hormone testing showed an LH level of 43.2 and an FSH level of 37.3. The patient takes duloxetine 20 mg. She denies smoking or drinking alcohol. She is due for a tetanus booster, as her last one was more than 10 years ago, and she declined the flu vaccine. [facility] Medical History (Updated 03/27/25 @ 19:40 by Masha Delacruz MD) Physical exam Costochondritis Chest pain Chest crackles Joint pain Fibromyalgia Asthma Rash XIOMY (generalized anxiety disorder) Hair loss Fibromyalgia Surgical History History of cholecystectomy History of Family History Mother No problems noted. Father Hypertension Social History Household Members: Children Housing: House Alcohol intake: never Patient Tobacco Use Status: Never used Tobacco e-Cigarette/Vaping Use: Never Used Second Hand Smoke Exposure: No service: No Current occupational status: employed Current occupation: [employer] Current occupational exposures/hazards: No Cognitive needs: No Hearing needs: No Vision needs: No Female Reproductive History Menstrual Age of Menarche: 12 Questionnaire PHQ-9 Over the last 2 weeks, how often have you been bothered by any of the following problems? 1. Little interest or pleasure in doing things: several days 2. Feeling down, depressed, or hopeless: several days 3. Trouble falling or staying asleep, or sleeping too much: not at all 4. Feeling tired or having little energy: several days 5. Poor appetite or overeating: not at all 6. Feeling bad about yourself - or that you are a failure or have let yourself or your family down: several days 7. Trouble concentrating on things, such as reading the newspaper or watching television: not at all 8. Moving or speaking so slowly that other people could have noticed. Or the opposite - being so fidgety or restless that you have been moving around a lot more than usual: not at all 9. Thoughts that you would be better off or of hurting yourself in some way: not at all Total score: 4 Depression Screening Interpretation: Positive Depression Screening Follow-up: Existing condition and Follow-up Visit Requested Depression Screening Done: Yes 18182 - PHQ-9 Billing: Yes Source: Developed by Drs. Skinny Dill, Maria Eugenia Shin, Devon Beal and colleagues, with an educational amy from [employer]. Thrive Questionnaire Date Thrive assessed: 03/27/25 I am a: Patient What is your living situation today?: I have a steady place to live Within the past 12 months, did the food you bought not last and you didn't have the money to get more?: I choose not to answer this question Within the past 12 months, did you worry whether your food would run out before you got money to buy more?: I choose not to answer this question Do you have trouble paying for medicines?: No Do you have trouble getting transportation to medical appointments?: No Do you have trouble paying your heating and electricity bill?: I choose not to answer this question Do you have trouble taking care of your child, family member or friend?: I choose not to answer this question Do you have trouble with day-to-day activities such as bathing, preparing meals, shopping, managing finances, etc.?: No Are you currently unemployed and looking for a job?: No Are you interested in more education?: No Please select the resources that you would like help with: None Currently or been in a relationship where the following occur: No concerns reported THRIVE Score: 0 AUDIT C Alcohol Use Questionnaire (AUDIT-C) 1. How often do you have a drink containing alcohol?: Never Total Score: 0 Score Reviewed/Action Taken: No XIOMY-7 AMB Questionnaire XIOMY-7 Date XIOMY - 7 assessed: 03/27/25 Feeling nervous, anxious, or on edge: 1 = Several days Not being able to stop or control worryin = Several days Worrying too much about different things: 1 = Several days Trouble relaxin = Several days Being so restless that it is hard to sit still: 0 = Not at all Becoming easily annoyed or irritable: 1 = Several days Feeling afraid as if something awful might happen: 1 = Several days Total XIOMY-7 score (0-4 normal; 5-9 mild; 10-14 moderate; 15-21 severe): 6 Source: Developed by Drs. Skinny Dill, Maria Eugenia Shin, Devon Beal and colleagues, with an educational amy from [employer]. XIOMY-7 Assessment Billing XIOMY-7 Assessment Tool: XIOMY-7 Assessment 36615 Review of Systems Const All systems reviewed & are unremarkable except as noted in HPI and below Card Denies chest pain at rest, Denies chest pain with activity, Denies edema, Denies irregular heart rhythm, Denies claudication, Denies dyspnea, Denies dyspnea on exertion, Denies orthopnea, Denies paroxysmal nocturnal dyspnea and Denies slow heart rate Resp Denies cough, Denies dyspnea and Denies dyspnea on exertion GI Denies abdominal pain, Denies change in bowel habits, Denies excessive flatus, Denies nausea and Denies vomiting Denies urinary incontinence, Denies urinary hesitancy and Denies urinary urgency Physical exam (Primary Care) Vital Signs: Last Vital Signs Pulse 95 03/27/25 15:13 Resp 18 03/27/25 15:13 BP 110/80 03/27/25 15:13 Pulse Ox 96 03/27/25 15:13 Oxygen Delivery Method Room Air 03/27/25 15:13 BMI result Body Mass Index 26.0 Tobacco/Smoking Status: Tobacco use Status Tobacco use date assessed 03/27/25 03/27/25 15:24 Patient Tobacco Use Status Never used Tobacco 03/27/25 15:24 e-Cigarette/Vaping Use Never Used 03/27/25 15:24 PHQ-9: PHQ-9 Score PHQ-9: Total score 4 03/27/25 15:38 Depression Screening Interpretation: Positive Depression Screening Follow-up: Existing condition and Follow-up Visit Requested Thrive Assessment: Date of Thrive Assessment Date Thrive assessed 03/27/25 03/27/25 15:24 Currently or been in a relationship where the following occur: No concerns reported [facility] Head: Yes normal to inspection, Yes normocephalic and Yes atraumatic Ears: external ears normal Eyes General: appearance normal, both eyes and all related structures Eyelids: Yes eyelids normal Conjunctivae: conjunctivae normal Neck Neck: Yes normal visual inspection and Yes supple Resp Effort & Inspection: normal respiratory effort Auscultation: clear to auscultation bilaterally Cardio Jugular venous distension: no JVD Rate: regular rate Rhythm: regular rhythm Heart sounds: S1 normal heart sound present and S2 normal heart sound present GI Inspection: Yes normal to inspection Palpation (GI): Soft to palpation and nontender Auscultation: normal bowel sounds Skin General skin exam: no rashes or lesions noted Neuro General: no focal motor deficits Extrem General: Yes full ROM Psych Appearance: grossly normal Coding Level of Care Code Est Pt Level 3 (82312) Est Pt Prev Care 40-64y(98702) Diagnoses Physical exam Z00.00 DUB (dysfunctional uterine bleeding) N93.8 Transaminitis R74.01 Additional Codes XIOMY-7 Assessment Billing - XIOMY-7 Assessment Tool: XIOMY-7 Assessment 84430 ([id number]) PHQ-9 - 77584 - PHQ-9 Billing: Yes ([id number]) Time Spent (min) 32 Assessment & Plan Assessment & Plan (1) Physical exam: Code(s): Z00.00 - Encounter for general adult medical examination without abnormal findings Category: Medical (2) DUB (dysfunctional uterine bleeding): Code(s): N93.8 - Other specified abnormal uterine and vaginal bleeding Category: Medical (3) Transaminitis: Code(s): R74.01 - Elevation of levels of liver transaminase levels Category: Medical Plan Plan 1. Physical exam Repeat in a year. 2. Abnormal Uterine Bleeding The patient presents for review of recent hormonal labs (LH 43.2, FSH 37.3) and dissatisfaction with a previous provider's vague management plan for menstrual cycle control. She reports the prior provider recommended a 10-day course of an unspecified medication with her menses. Given her concerns and desire for a more thorough evaluation, a referral will be provided for a second opinion with a atmospheric scientist. 3. Elevated Liver Enzymes Recent lab results show slightly elevated liver enzymes. These results were reviewed with the patient. Orders: [facility]errals [facility] Referral N93.8 - Other specified abnormal uterine and vaginal bleeding Gastroenterology Referral R74.01 - Elevation of levels of liver transaminase levels
[2025-03-27 15:13] VITALS: BP 110/80; PULSE 95; RESP 18; O2SAT 96; BMI 26.0
--- OUTSIDE RECORDS SUMMARY | 2025-03-27 16:54 | XMS_ITS | Clinical Summary ---
Author Organization [facility] Address [address] [place] [address] [place] [id number] Phone Care Team Providers Care Slate Cutter Name Role Phone Masha Bain MD Primary [...] - 01/10/2025 11:59 PM EDT Hospital Encounter [facility] [address] [place] [address] Tawny Blue PA-C Discharge Disposition: Home or Self Care 01/09/2025 9:28 PM EDT - 01/10/2025 12:41 AM EDT Emergency [facility] [address] [place] [address] Discharge Disposition: Home or Self Care from [...] due to blood products. Of note, the guard range noted a moderate amount of blood upon [...] be due to blood products. Of note,the guard range noted a moderate amount of blood upon [...] clinician's provided indication for this examination in [facility]: Pain COMPARISON: None available. FINDINGS: Lumbar spine: Normal alignment. Normal vertebral body heights. Normal intervertebral disc spaces. Intact sacroiliac joints. No sacroiliitis. Sacrum and coccyx: No displaced fracture. Procedure Note Cleveland Garcia MBBS - 01/09/2025 XR LUMBOSACRAL SPINE 2-3 VIEWS, XR SACRUM AND COCCYX Referring clinician's provided indication for this examination in [facility]:Pain COMPARISON: None available. FINDINGS: Lumbar spine: Normal [...] clinician's provided indication for this examination in [facility]: Pain COMPARISON: None available. FINDINGS: Lumbar spine: Normal alignment. Normal vertebral body heights. Normal intervertebral disc spaces. Intact sacroiliac joints. No sacroiliitis. Sacrum and coccyx: No displaced fracture. Procedure Note Cleveland Garcia MBBS - 01/09/2025 XR LUMBOSACRAL SPINE 2-3 VIEWS, XR SACRUM AND COCCYX Referring clinician's provided indication for this examination in [facility]:Pain COMPARISON: None available. FINDINGS: Lumbar spine: Normal alignment. Normal vertebral body heights. Normalintervertebral disc spaces. Intact sacroiliac joints. No sacroiliitis. Sacrum and coccyx: No displaced fracture. IMPRESSION: No displaced fracture. Tawny MARMOLEJO-C IMG XR SPINE Final Resul t * HCG, serum qualitative (01/09/2025 4:55 PM EDT) HCG, QUALITATIVE Negative Negative IU/L [facility] Blood 01/09/2025 4:55 PM EDT 01/09/2025 5:56 PM EDT Ganesh Najera MD LAB BLOOD BKR ORD ERABLES Final Result [facility] [address] [place] [address] * CBC and differential (01/09/2025 4:55 PM EDT) WBC 5.20 4.00 - 11.00 K/uL [facility] RBC 4.36 4.00 - 5.20 M/uL [facility] HGB 13.2 12.0 - 16.0 g/dL [facility] HCT 39.1 36.0 - 46.0 % [facility] PLT 217 150 - 450 K/uL [facility] MCV 89.7 80.0 - 100.0 fL [facility] MCH 30.3 27.0 - 31.0 pg [facility] MCHC 33.8 32.0 - 36.0 g/dL [facility] RDW 12.6 11.5 - 14.5 % [facility] MPV 11.5 8.4 - 12.0 fL [facility] NRBC 0.00 0.00 /100 WBCs [facility] ABSOLUTE NRBC 0.00 0.00 K/uL [facility] DIFF METHOD Auto [facility] NEUTS 62.5 48.0 - 76.0 % [facility] LYMPHS 28.5 18.0 - 41.0 % [facility] MONOS 6.3 4.0 - 11.0 % [facility] EOS 1.5 0.0 - 5.0 % [facility] BASOS 1.0 0.0 - 1.5 % [facility] Granulocytes, immature (%) 0.2 0.0 - 0.9 % [facility] ABSOLUTE NEUTS 3.25 1.92 - 7.60 K/uL [facility] ABSOLUTE LYMPHS 1.48 0.72 - 4.10 K/uL [facility] ABSOLUTE MONOS 0.33 0.16 - 1.10 K/uL [facility] ABSOLUTE EOS 0.08 0.00 - 0.50 K/uL [facility] ABSOLUTE BASOS 0.05 0.00 - 0.15 K/uL [facility] Granulocytes, immature 0.01 0.00 - 0.09 K/uL [facility] Blood 01/09/2025 4:55 PM EDT 01/09/2025 5:56 PM EDT us Ganesh Najera MD LAB BLOOD BKR ORD ERABLES Final Result Performing Organization Address City/[facility]/ZIP Co de Phone Number [address] [address] * (ABNORMAL) Basic metabolic panel (01/09/2025 4:55 PM EDT) SODIUM 140 133 - 146 mmol/L [facility] CHLORIDE 103 96 - 108 mmol/L [facility] POTASSIUM 4.4 3.3 - 5.1 mmol/L [facility] Comment:Specimen slightly he molyzed, result may be falsely elevated. CO2 27 21 - 35 mmol/L [facility] BUN 24(H) 6 - 19 mg/dL [facility] CREATININE 0.70 0.5 - 1.5 mg/dL [facility] GLUCOSE 88 70 - 99 mg/dL [facility] CALCIUM 9.4 8.4 - 10.3 mg/dL [facility] EGFR 108 >59 mL/min/1.7 3m2 [facility] Comment:Estimated glomerular filtration rate calculated using the CKD-EPI refit equation. ANION GAP 14 10 - 20 mmol/L [facility] Blood 01/09/2025 4:55 PM EDT 01/09/2025 5:56 PM EDT us Ganesh Najera MD LAB BLOOD BKR ORD ERABLES Final Result Performing Organization Address City/[facility]/ZIP Co de Phone Number [address] [address] * (ABNORMAL) Urinalysis w/reflex Urine Culture (01/09/2025 4:39 PM EDT) COLOR Yellow Yellow [facility] CLARITY Clear [facility] GLUCOSE Negative Negative [facility] BILI Negative Negative [facility] KETONES Negative Negative [facility] SPECIFIC GRAVITY 1.015 1.005 - 1.030 [facility] BLOOD 3+(A) Negative [facility] PH 7.0 5.0 - 8.0 [facility] Protein-UA Negative Negative [facility] NITRITE Negative Negative [facility] Leukocyte esterase, ur Negative Negative [facility] Urine (Urine) 01/09/2025 4:3 9 PM EDT 01/09/2025 5:45 PM EDT us Ganesh Najera MD LAB URINE ORDERAB LES Final Result Performing Organization Address [facility]/ZIP Co de Phone Number [address] [address] * (ABNORMAL) Urine sediment (01/09/2025 4:39 PM EDT) WBC 0-4(A) NONE SEEN /hpf [facility] RBC 6-10(A) NONE SEEN /hpf [facility] URINE EPITHELIAL 0-4(A) NONE SEEN [facility] MUCUS Trace(A) NONE SEEN /hpf [facility] BACTERIA Trace(A) NONE SEEN /hpf [facility] CRYSTALS 1+ [facility] Comment:AMORPHOUS 01/09/2025 4:39 PM EDT 01/09/2025 5:45 PM EDT us Ganesh Najera MD LAB URINE ORDERAB LES Final Result Performing Organization Address City/[facility]/ZIP Co de Phone Number [address] [address] * ECG 12-LEAD (01/09/2025 4:36 PM EDT) Ventricular Rate EKG/MIN 82 BPM [facility] Atrial Rate 82 BPM [facility] PA Interval 150 ms [facility] QRS Duration 68 ms [facility] QT Interval 370 ms [facility] QTC Interval 432 ms [facility] P [place] 47 degrees [facility] R Wave [place] 13 degrees [facility] T Wave [place] 42 degrees [facility] 01/09/2025 4:36 PM EDT [...] [facility] NON NSPG PCP [facility] NON NSPG PCP [facility] NON NSPG PCP [facility] NON NSPG PCP S[facility] NON NSPG PCP [facility] Care Teams Slate Cutter Relationship Specialty Start Date End Date Masha Bain MD [address] [place] [address] PCP - General Internal Medicine 04/01/23 Additional Source Comments The information contained in this document represents components of the legal health record. It is not the complete legal health record.[facility]
== END 2025-03-27 16:42 | disposition home or self-care (01) ==
LOC: HO.HMCH 15:07
PROVIDERS: PCP Internal Medicine; Visit Provider Internal Medicine
DX: Z00.00 Encounter for general adult medical examination without abnormal findings (principal); N93.8 Other specified abnormal uterine and vaginal bleeding; R74.01 Elevation of levels of liver transaminase levels

== ENCOUNTER → 2025-03-27 15:06 | Outpatient (BNVA) | payer OTHER, SELFPAY | PROVIDERS: PCP Internal Medicine; Visit Provider Internal Medicine | DX: Z00.00 Encounter for general adult medical examination without abnormal findings (principal); N93.8 Other specified abnormal uterine and vaginal bleeding; R74.01 Elevation of levels of liver transaminase levels; Z79.899 Other long term (current) drug therapy | CPT/HCPCS: 96127; 99396 ==